=== PATIENT | male | born 1970 | race Caucasian/White ===

== ENCOUNTER 2016-12-16 10:50 | Inpatient (IN) ==
--- NOTE | 2016-12-16 11:26 | Emergency Department Note ---
Disposition Clinical Impression: Lower GI bleed, Anticoagulated Diverticulosis Qualifiers: Diverticulosis site: diverticulosis of large intestine Diverticulosis bleeding : diverticulosis with bleeding Qualified Code(s): K57.31 - Diverticulosis of large intestine without perforation or abscess with bleeding Disposition: Admitted As Inpatient Condition: Good Time of Disposition: 15:09 GI Bleed HPI - General Chief complaint: ED GI Bleed Stated complaint: rectal bleeding Source: patient Limitations: no limitations Nursing Notes Reviewed: Yes Vital Signs Reviewed: Yes - History of Present Illness HPI Narrative: 46-year-old male with past medical history of A. fib, diabetes, hypertension who is on the xarelto and aspirin daily presents to the emergency department complaining of dark red blood in his stool that began yesterday. He states that when he had a BM yesterday there was "a lot" of dark red blood. He was able to eat [employer] last night had no other symptoms. This morning he woke up and had 2 bowel movements that were looser than last night and dark red with dark black specks. He has never had a colonoscopy. He denies a history of any colon issues in the family. He has never had anything like this happen before. Denies headache, dizziness, changes in his vision, fevers, chills, chest pain , palpitations, cough, wheezing, shortness of breath, abdominal pain, dysuria - Related Data Home Medications Medication Instructions Recorded Confirmed Furosemide [Lasix] 80 mg PO BID 03/21/16 12/16/16 Metformin [Glucophage] 500 mg PO BIDWM 03/21/16 12/16/16 Rivaroxaban [Xarelto] 20 mg PO DAILY 03/21/16 12/16/16 Fluticasone Propionate Nasal 50 mcg NS DAILY #0 03/22/16 12/16/16 [Flonase] Glimepiride [Amaryl] 2 mg PO BID #0 03/22/16 12/16/16 Lisinopril/Hydrochlorothiazide 1 each PO DAILY #0 03/22/16 12/16/16 [Zestoretic 20-25 mg Tablet] Pioglitazone [Actos] 15 mg PO DAILY #0 03/22/16 12/16/16 Simvastatin [Zocor] 40 mg PO DAILY #0 03/22/16 12/16/16 Empagliflozin [Jardiance] 10 mg PO DAILY 12/16/16 12/16/16 Previous Rx's Medication Instructions Recorded Aspirin 81 mg PO DAILY #90 tab.chew 03/23/16 Nitroglycerin [Nitrostat] 0.4 mg SL AD PRN #30 tab 03/23/16 Carvedilol 12.5 mg PO BID 30 Days 06/07/16 Diltiazem HCl 90 mg PO TID 30 Days 06/07/16 Potassium Chloride 20 meq PO DAILY #30 tab.er.prt 06/07/16 Allergies Allergy/AdvReac Type Severity Reaction Status Date / Time No Known Allergies Allergy Verified 12/16/16 14:36 Constitutional: Denies: fever, chills, weakness, weight change Eyes: Denies: vision change ENT ED: Denies: ear pain, throat pain, epistaxis, dysphagia Cardiovascular: Denies: chest pain, palpitations, dyspnea on exertion, edema, syncope Respiratory: Denies: cough, dyspnea, wheezes, hemoptysis, stridor Gastrointestinal: Denies: abdominal pain, nausea, vomiting, diarrhea, constipation, hematemesis, melena Genitourinary: Denies: urgency, dysuria, frequency, hematuria Musculoskeletal: Denies: back pain Integumentary: Denies: rash Neurological: Denies: headache, weakness, numbness, paresthesias, confusion, abnormal gait, vertigo Endocrine: Denies: fatigue Past Medical History - Past Medical History Medical history: Reports: arthritis, atrial fibrillation, COPD, diabetes, GERD, hyperlipidemia, hypertension Surgical history: Reports: other Psychiatric history: Reports: no psych history - Social History Smoking Status: Never smoker Smokeless Tobacco Status: Yes Alcohol use: Reports: none Drug use: Reports: none Physical Exam - General Limitations: no limitations General appearance: alert, in no apparent distress - Head Head exam: atraumatic, normocephalic, normal inspection - Eye Eye exam: Present: normal appearance, PERRL, EOMI - Expanded Eye Exam Pupils: Left: reactive Sclera/Conjunctival: bilateral: normal inspection - ENT ENT exam: normal exam, normal oropharynx, mucous membranes moist - Neck Neck exam: Present: normal inspection, full ROM, trachea midline - Chest Chest inspection: Present: normal inspection, symmetric chest wall rise - Respiratory Respiratory exam: Present: normal lung sounds bilaterally - Cardiovascular Cardiovascular exam: Present: regular rate, normal rhythm, normal heart sounds - Abdominal Exam Abdominal exam: Present: soft, Non-Tender, normal bowel sounds. Absent: tenderness, distention, guarding, rebound, rigidity - Rectal Exam Shipping Lead Person present during exam: No Rectal exam: Present: normal rectal tone, bloody stool, normal prostate. Absent : hemorrhoids, tenderness - Extremities Exam Extremities exam: Present: normal inspection, full ROM. Absent: tenderness, pedal edema - Back Exam Back exam: Present: normal inspection, full ROM. Absent: tenderness - Neurological Exam Neurological exam: Present: alert, oriented X3 - Psychiatric Psychiatric exam: Present: normal affect, normal mood - Skin Skin exam: Present: warm, dry, intact, normal color Course Course Narrative: 46-year-old male with past medical history of A. fib, diabetes, hypertension who is on the xarelto and aspirin daily presents to the emergency department complaining of dark red blood in his stool that began yesterday. He states that when he had a BM yesterday there was "a lot" of dark red blood. He was able to eat [employer] last night had no other symptoms. This morning he woke up and had 2 bowel movements that were looser than last night and dark red with dark black specks. He has never had a colonoscopy. He denies a history of any colon issues in the family. He has never had anything like this happen before. Denies headache, dizziness, changes in his vision, fevers, chills, chest pain , palpitations, cough, wheezing, shortness of breath, abdominal pain, dysuria. Lab work was generally reveals a hemoglobin of 12.4, which is around his baseline. Rectal exam and blood was noted. Stool occult sent. Abdominal CT shows diverticulosis without evidence of diverticulitis. I discussed with the patient that since he is on both Xarelto and aspirin he is at high risk for continuing to bleed, as his body is less capable of stopping the bleeding right now. She is same we recommend admission to the hospital to monitor his hemoglobin and rate of bleeding. Vital signs are currently stable and patient appears well in exam no acute finding patient was hesitant to stay, however after discussion about the risks of bleeding and the patient is anticoagulated he is agreeable to admission. Admission discussed with Dr. Trevizo with Hospitalist service. - Consultations Consultation #1: Discussed the case with Dr. Trevizo who has accepted the patient to the hospitalist service. Time: 15:09 Vital Signs Temperature 97.4 F L 12/16/16 10:56 Pulse Rate 75 12/16/16 10:56 Respiratory Rate 20 12/16/16 10:56 Blood Pressure 113/80 12/16/16 10:56 O2 Sat by Pulse Oximetry 97 12/16/16 10:56 Temperature 97.4 F L 12/16/16 10:56 Pulse Rate 75 12/16/16 15:00 Respiratory Rate 16 12/16/16 15:50 Blood Pressure 120/78 12/16/16 15:50 O2 Sat by Pulse Oximetry 98 12/16/16 15:00 Oxygen Delivery Oxygen Delivery Room Air GI Bleed - Medical Records Medical records reviewed: Yes I reviewed the patient's medical records. - Lab Data Lab results reviewed: Yes I reviewed the patient's lab results. Result diagrams: 12/16/16 11:36 12/16/16 11:36 Lab Results 12/16/16 12/16/16 12/16/16 Range/Units 11:36 11:36 11:36 WBC 13.4 H (4.3-11.1) K/mcL RBC 4.82 (4.19-5.50) M/mcL Hgb 12.4 L (12.9-16.9) g/dL Hct 37.8 (37.5-50.1) % MCV 78.4 L (83.0-100.0) fL MCH 25.7 L (28.0-33.3) pg MCHC 32.8 (31.6-35.5) g/dL RDW 17.1 H (11.5-14.5) % Plt Count 292 (140-400) K/mcL MPV 8.5 L (9.4-12.4) fL Immature Gran % 0.6 (0-4) % Seg Neutrophils % 81.5 % Lymphocytes % 11.4 % Monocytes % 5.5 % Eosinophils % 0.7 % Basophils % 0.3 % Neutrophils # 10.9 H (1.6-8.9) K/mcL Lymphocytes # 1.5 (0.6-4.6) K/mcL Monocytes # 0.7 (0.0-1.3) K/mcL Eosinophils # 0.1 (0.0-0.6) K/mcL Basophils # 0.0 (0.0-0.2) K/mcL PT 20.9 H (9.4-12.1) Seconds INR 1.9 APTT 47.3 H (26.0-36.0) Seconds Sodium 127 L (136-145) mEq/L Potassium 4.3 (3.5-4.5) mEq/L Chloride 91 L (98-109) mEq/L Carbon Dioxide 21 (19-29) mEq/L BUN 56 H (8-26) mg/dL Creatinine 1.96 H (0.72-1.25) mg/dL Est GFR ( Amer) 44 L (> 60) Est GFR (Non-Af Amer) 37 L (> 60) BUN/Creatinine Ratio 29 H (6-26) Glucose 244 H (70-99) mg/dL Calculated Osmolality 288 (280-300) Calcium 9.8 (8.6-10.8) mg/dL Total Bilirubin 0.5 (0.2-1.2) mg/dL AST 16 (5-34) Units/L ALT 20 (0-55) Units/L Alkaline Phosphatase 78 (38-126) Units/L Serum Total Protein 8.1 (6.0-8.3) g/dL Albumin 3.9 (3.5-5.0) g/dL Globulin 4.2 H (2.4-3.5) g/dL Albumin/Globulin Ratio 0.9 L (1.1-2.2) Stool Occult Blood (Negative) Blood Type Antibody Screen 12/16/16 12/16/16 Range/Units 11:36 13:35 WBC (4.3-11.1) K/mcL RBC (4.19-5.50) M/mcL Hgb (12.9-16.9) g/dL Hct (37.5-50.1) % MCV (83.0-100.0) fL MCH (28.0-33.3) pg MCHC (31.6-35.5) g/dL RDW (11.5-14.5) % Plt Count (140-400) K/mcL MPV (9.4-12.4) fL Immature Gran % (0-4) % Seg Neutrophils % % Lymphocytes % % Monocytes % % Eosinophils % % Basophils % % Neutrophils # (1.6-8.9) K/mcL Lymphocytes # (0.6-4.6) K/mcL Monocytes # (0.0-1.3) K/mcL Eosinophils # (0.0-0.6) K/mcL Basophils # (0.0-0.2) K/mcL PT (9.4-12.1) Seconds INR APTT (26.0-36.0) Seconds Sodium (136-145) mEq/L Potassium (3.5-4.5) mEq/L Chloride (98-109) mEq/L Carbon Dioxide (19-29) mEq/L BUN (8-26) mg/dL Creatinine (0.72-1.25) mg/dL Est GFR ( Amer) (> 60) Est GFR (Non-Af Amer) (> 60) BUN/Creatinine Ratio (6-26) Glucose (70-99) mg/dL Calculated Osmolality (280-300) Calcium (8.6-10.8) mg/dL Total Bilirubin (0.2-1.2) mg/dL AST (5-34) Units/L ALT (0-55) Units/L Alkaline Phosphatase (38-126) Units/L Serum Total Protein (6.0-8.3) g/dL Albumin (3.5-5.0) g/dL Globulin (2.4-3.5) g/dL Albumin/Globulin Ratio (1.1-2.2) Stool Occult Blood Positive A (Negative) Blood Type A POSITIVE Antibody Screen NEGATIVE - Radiology Data Radiology results reviewed: Yes I reviewed the patient's radiology results. Abdomen/Pelvis CT 12/16/16 11:27 IMPRESSION: No acute abnormality in the abdomen or pelvis. Minimal rectosigmoid diverticulosis. No diverticulitis. Severe right hip osteoarthritis. D/ / 12/16/2016 13:39:00 Shira Bragg MD / jeannette Interpreting Provider: Shira Bragg MD - EKG Data EKG attestation: Yes I reviewed and interpreted this EKG. Rhythm: A.Fib Interpretation: unchanged when compared to prior tracing (date) Attestation Statement - Attestation Attestation: Patient was seen with resident physician. I reviewed the history, physical, assessment and plan, and agree with the findings. I also personally evaluated this patient and had [id number] time with this patient. Plan is a 46-year- old male who presents to the emergency department with rectal bleeding. Patient states he has had multiple dark black and purple stools over the last several days. Patient became concerned because he is on blood thinners for atrial fibrillation which she has had for some time. He has not had any abdominal pain. Denies other symptoms. He vehemently denies wanting to be admitted to the hospital. On examination ENT is unremarkable heart and lungs are normal. Abdomen is soft obese and nontender. Extremities are also unremarkable. Will do workup for GI bleed including a CT scan of the abdomen and pelvis and full laboratory panel. H&H was stable. Patient some mild worsening renal function. We will disposition according to the final findings and patient wishes. We were able to convince patient to stay in the hospital. With his rectal bleeding and being on blood thinners in addition to the fact that he has a CT finding compatible with a diagnosis that can cause GI bleed, admission was felt to be highly important. The hospitalist team was notified and patient was admitted I agree with the resident physician assessment and plan.
[2016-12-16 11:43] LABS: Basophils % 0.3 %; Eosinophils # 0.1 K/mcL (0.0-0.6); Eosinophils % 0.7 %; Hematocrit 37.8 % (37.5-50.1); Hemoglobin 12.4 g/dL (12.9-16.9); Immature Granulocytes % 0.6 % (0-4); Lymphocytes # 1.5 K/mcL (0.6-4.6); Lymphocytes % 11.4 %; Mean Corpuscular HGB Conc 32.8 g/dL (31.6-35.5); Mean Corpuscular Hemoglobin 25.7 pg (28.0-33.3); Mean Corpuscular Volume 78.4 fL (83.0-100.0); Mean Platelet Volume 8.5 fL (9.4-12.4); Monocytes # 0.7 K/mcL (0.0-1.3); Monocytes % 5.5 %; Neutrophils # 10.9 K/mcL (1.6-8.9); Platelet Count 292 K/mcL (140-400); Red Blood Count 4.82 M/mcL (4.19-5.50); Red Cell Distribution Width 17.1 % (11.5-14.5); Segmented Neutrophils % 81.5 %
[2016-12-16 11:54] LABS: INR 1.9; Prothrombin Time 20.9 Seconds (9.4-12.1)
[2016-12-16 11:56] LABS: Activated Partial Thrombo Time 47.3 Seconds (26.0-36.0); Albumin 3.9 g/dL (3.5-5.0); Albumin/Globulin Ratio 0.9 (1.1-2.2); Bilirubin,Total 0.5 mg/dL (0.2-1.2); Calcium 9.8 mg/dL (8.6-10.8); Globulin 4.2 g/dL (2.4-3.5); Potassium 4.3 mEq/L (3.5-4.5); Total Protein 8.1 g/dL (6.0-8.3)
[2016-12-16] MEDS ORDERED: 0.9 % Sodium Chloride 1,000 ML IVC ONE (12:29)
[2016-12-16] MEDS ORDERED: Naloxone 0.4 MG/ML INJ IVP PRN (16:48)
[2016-12-16] MEDS ORDERED: Ondansetron 4 MG/2 ML VIAL IVP PRN (16:50)
--- NOTE | 2016-12-16 17:51 | Internal Med History&Physical ---
<Myron,Tamika Arshad - Last Filed: 12/16/16 18:49> Date of Encounter: 12/16/16 Time of Encounter: 17:15 Assessment and Plan (1) Diverticulosis Current visit: Yes Status: Acute Pt reports 1 day history of dark GI bleeding with loose stool. Pt denies pain, bloating, or cramping. No history of same in the past. Hgb 12.4 today and guiac was positive in the ER. Spoke with Dr Franco who will see pt tomorrow. Clear liquid diet Monitor H&H Stop anticoagulants Consult surgery Qualifiers: Diverticulosis site: diverticulosis of large intestine Diverticulosis bleeding: diverticulosis with bleeding Qualified Code(s): K57.31 - Diverticulosis of large intestine without perforation or abscess with bleeding (2) Diabetes Current visit: No Status: Chronic Pt states that he is compliant with his diabetic medications, but does not appear to follow diet when asked if he is counting his carbohydrates. Serum glucose 244mg/dL in the ER. Sodium 127, will continue to monitor both levels for hemostasis. Last A1c was 7.0% in May 2016. Will repeat. I consulted podiatry as well due to the condition of his feet. Pt walks barefooted most of the time he says and his toenails are long and some are thickened, pt is not able to reach them to trim. Nutrition and sliding scale insulin Stop po home antidiabetic medications Diabetic diet once he is cleared to advance diet A1c Accucheck achs Consult podiatry Consult simulation educator Qualifiers: Diabetes mellitus type: type 2 Diabetes mellitus complication status: with kidney complications Diabetes mellitus complication detail: with chronic kidney disease Diabetes mellitus assisted insulin use: without intermission coordinator use Chronic kidney disease stage: stage 3 (moderate) Qualified Code(s): E11.22 - Type 2 diabetes mellitus with diabetic chronic kidney disease; N18.3 - Chronic kidney disease, stage 3 (moderate) (3) Renal failure Current visit: No Status: Chronic Pt with CKD. Creatinine today 1.96. Chronically elevated for the last 8 months. Will continue to monitor and avoid nephrotoxins, NSAIDs. Internal Medicine - H&P: HPI Chief complaint: GI bleed Admitted From: Home Plans for Post Hospital Care: Home History of present illness: Mr. Mcdonnell is a 46 year old male with history of DM, hyperlipidemia, a-fib, and CAD who presents to the ED today with c/o 1 day history of GI bleed. Pt had BM yesterday a.m. and this a.m. which had dark blood that "filled the toilet". Pt states that his stool was green. Denies any pain, bloating, or new distension. Past Med Surg Social Fam HX - Past Medical History Medical history: arthritis, atrial fibrillation, COPD, diabetes, GERD, hyperlipidemia, hypertension Psychiatric history: no psych history - Past Surgical History Surgical History: other - Social History Smoking Status: Never smoker Smokeless Tobacco Status: Yes Alcohol use: none Drug use: none - Family History Father Living Status: Hx Family Cardiac Disorders: Yes Hx Family Cancer: Yes Internal Medicine - H&P: Meds Furosemide [Lasix] 80 mg PO BID 03/21/16 [History] Metformin [Glucophage] 500 mg PO BIDWM 03/21/16 [History] Rivaroxaban [Xarelto] 20 mg PO DAILY 03/21/16 [History] Fluticasone Propionate Nasal [Flonase] 50 mcg NS DAILY #0 03/22/16 [History] Glimepiride [Amaryl] 2 mg PO BID #0 03/22/16 [History] Lisinopril/Hydrochlorothiazide [Zestoretic 20-25 mg Tablet] 1 each PO DAILY #0 03/22/16 [History] Pioglitazone [Actos] 15 mg PO DAILY #0 03/22/16 [History] Simvastatin [Zocor] 40 mg PO DAILY #0 03/22/16 [History] Aspirin 81 mg PO DAILY #90 tab.chew 03/23/16 [Rx] Nitroglycerin [Nitrostat] 0.4 mg SL AD PRN #30 tab 03/23/16 [Rx] Carvedilol 12.5 mg PO BID 30 Days 06/07/16 [Rx] Diltiazem HCl 90 mg PO TID 30 Days 06/07/16 [Rx] Potassium Chloride 20 meq PO DAILY #30 tab.er.prt 06/07/16 [Rx] Empagliflozin [Jardiance] 10 mg PO DAILY 12/16/16 [History] Allergies No Known Allergies Allergy (Verified 12/16/16 14:36) All Systems PM: A 10-system review of systems was performed and is negative for pertinent findings except as documented above in the HPI. - Constitutional Constitutional: no chills, no fatigue, no fever(s), no weakness - Cardiovascular Cardiovascular ROS IM: edema, no chest pain, no dyspnea, no lightheadedness, no palpitations - Respiratory Respiratory: no cough, no wheezing, no chest congestion - Gastrointestinal Gastrointestinal: no diarrhea, no nausea, no vomiting - Integumentary Integumentary IM: no erythema, no unusual bruising - Endocrine Endocrine IM: polydipsia, no polyphagia, no polyuria - Hematologic/Lymphatic Hematologic/Lymphatic: no easy bleeding, no easy bruising - Constitutional Vitals: Temp Pulse Resp BP Pulse Ox 97.7 F 100 16 100/64 95 12/16/16 16:32 12/16/16 16:32 12/16/16 16:32 12/16/16 16:32 12/16/16 16:32 General appearance: Present: cooperative, A&O X 3, pleasant, no acute distress - Head Head exam: Present: atraumatic - ENT ENT exam: Present: mucous membranes moist - Respiratory Respiratory exam: Present: CTAB. Absent: accessory muscle use, chest wall tenderness, decreased breath sounds, respiratory distress, rhonchi, wheezes - Cardiovascular Cardiovascular exam: Present: RRR, +S1, +S2. Absent: distant heart sounds, systolic murmur - GI/Abdominal GI/Abdominal exam: Present: distended, hyperactive bowel sounds, soft. Absent: hernia, pulsatile mass, tenderness - Rectal Rectal exam: Present: deferred - Extremities Exam Extremities exam: Present: full ROM, pedal edema, warm, radial pulses palpable and symetrical. Absent: tenderness Additional comments: PT has +2 non-pitting edema to BLE, pt states is normal for him. BLE +2 pedal pulses. - Neurological Exam Neurological exam: Present: alert, oriented X3, strengths equal and symetr throughout Internal Med - H&P Results - Labs CBC & Chem 7: 12/16/16 11:36 12/16/16 11:36 <Al Trevizo - Last Filed: 12/17/16 09:09> Date of Encounter: 12/17/16 Internal Medicine - H&P: HPI History of present illness: Mr. Mcdonnell is a 46 year old male All Systems PM: A 10-system review of systems was performed and is negative for pertinent findings except as documented above in the HPI. - Constitutional Vitals: Temp Pulse Resp BP Pulse Ox 98.0 F 76 18 109/72 94 L 12/17/16 06:55 12/17/16 06:55 12/17/16 06:55 12/17/16 06:55 12/17/16 08:51 Internal Med - H&P Results - Labs CBC & Chem 7: 12/17/16 01:08 12/17/16 01:08 Labs: Short CBC 12/16/16 12/17/16 Range/Units 20:22 01:08 WBC 9.4 (4.3-11.1) K/mcL Hgb 11.2 L 10.7 L (12.9-16.9) g/dL Hct 34.7 L 33.0 L (37.5-50.1) % Plt Count 267 (140-400) K/mcL Neutrophils # 6.6 (1.6-8.9) K/mcL BMP 12/17/16 01:08 Sodium 130 L Potassium 4.5 Chloride 96 L Carbon Dioxide 21 BUN 46 H D Creatinine 1.58 H Glucose 139 H Calcium 8.8 - Attending Attestation I examined this patient and my medical decision-making was reviewed with the Advanced Practice Provider. I agree with the documented findings, disposition and treatment plan as described except to the extent set forth below. Patient presented to the hospital with rectal bleed. On exam he is in no acute distress, heart irregularly irregular S1-S2. Abdomen obese, soft, nontender to palpation. For lower GI bleed likely diverticular bleed we will start bowel rest. Sips and chips diet. IV Protonix. Hold anticoagulation. Consult general surgery.
[2016-12-16] MEDS: 0.9 % Sodium Chloride 1,000 ML IVC SCH (17:57)
[2016-12-16] MEDS ORDERED: Dextrose Gel 15 GM PO PRN ×2 (18:24)
[2016-12-16] MEDS ORDERED: D5% in Water 1,000 ML IV PRN (18:24)
[2016-12-16] MEDS ORDERED: *HR* Dextrose 50 % in Water (Syg) 50 ML SYRINGE IVP PRN (18:24)
[2016-12-16 20:36] LABS: Hematocrit 34.7 % (37.5-50.1); Hemoglobin 11.2 g/dL (12.9-16.9)
[2016-12-16] MEDS: dilTIAZem HCl 60 MG TABLET PO SCH (21:32)
[2016-12-16] MEDS: Furosemide 40 MG TABLET PO SCH (21:34)
[2016-12-16] MEDS: Insulin LISPRO 300 UNITS/3 ML VIAL SQ SCH (21:35)
[2016-12-17 01:36] LABS: Basophils % 0.4 %; Eosinophils # 0.1 K/mcL (0.0-0.6); Eosinophils % 1.2 %; Hemoglobin 10.7 g/dL (12.9-16.9); Immature Granulocytes % 0.7 % (0-4); Immature Platelets 1.6 % (1.1-6.1); Lymphocytes # 1.8 K/mcL (0.6-4.6); Lymphocytes % 19.2 %; Mean Corpuscular HGB Conc 32.4 g/dL (31.6-35.5); Mean Corpuscular Hemoglobin 25.5 pg (28.0-33.3); Mean Corpuscular Volume 78.6 fL (83.0-100.0); Mean Platelet Volume 8.6 fL (9.4-12.4); Monocytes # 0.8 K/mcL (0.0-1.3); Monocytes % 8.1 %; Neutrophils # 6.6 K/mcL (1.6-8.9); Platelet Count 267 K/mcL (140-400); Segmented Neutrophils % 70.4 %
[2016-12-17 01:51] LABS: Calcium 8.8 mg/dL (8.6-10.8); Hemoglobin A1C 8.8 %; Potassium 4.5 mEq/L (3.5-4.5)
[2016-12-17] MEDS ORDERED: Insulin LISPRO 300 UNITS/3 ML VIAL SQ SCH ×2 (07:30→08:00)
[2016-12-17] MEDS: 0.9 % Sodium Chloride 1,000 ML IVC SCH (08:37)
[2016-12-17] MEDS: Furosemide 40 MG TABLET PO SCH ×2 (08:37→20:41)
[2016-12-17] MEDS: dilTIAZem HCl 60 MG TABLET PO SCH ×3 (08:38→20:40)
[2016-12-17] MEDS: Insulin DETEMIR 100 UNIT/ML X5UNITS SQ SCH (08:47)
[2016-12-17] MEDS: Fluticasone Propionate Nasal 50 MCG/SPRAY BOTTLE NS SCH (08:47)
--- NOTE | 2016-12-17 09:37 | Internal Med Progress Note ---
Date of Encounter: 12/17/16 Time of Encounter: 09:15 - Assessment and plan (1) Lower GI bleed Current Visit: Yes Status: Acute Assessment and plan: patient on chronic anticoagulation with Xarelto for afib. presented with dark bloody stools. CTAP showed diverticulosis. hgb 10.7 from 12.4 on admission. patient is hemodynamically stable. could be secondary to diverticular bleed. no prior episodes of GI bleed. continue medical management with IV fluids, close monitoring of hgb. (2) Acute hyponatremia Current Visit: Yes Status: Acute Assessment and plan: likely from dehydration and furosemide use. Na was 127 on admission. improved after IV fluids. (3) Acute renal failure superimposed on stage 3 chronic kidney disease Current Visit: No Status: Chronic Assessment and plan: Acute event secondary to Gi bleed. Improved after IV fluids. close monitoring. avoid nephrotoxins as possible. (4) Atrial fibrillation Current Visit: No Status: Acute Assessment and plan: heart rate is controlled. continue coreg and diltiazem. Qualifiers: Atrial fibrillation type: chronic Qualified Code(s): I48.2 - Chronic atrial fibrillation (5) CAD (coronary artery disease) Current Visit: No Status: Chronic Assessment and plan: stable. continue bblocker, and statin. holding asa due to GI bleed. Qualifiers: Coronary Disease-Associated Artery/Lesion type: [place] artery [place] vs. transplanted heart: [place] heart Associated angina: without angina Qualified Code(s): I25.10 - Atherosclerotic heart disease of [place] coronary artery without angina pectoris (6) Chronic anticoagulation Current Visit: No Status: Chronic Assessment and plan: on xarelto for afib (7) Diabetes Current Visit: No Status: Chronic Assessment and plan: insulin levemir 10 am. continue insulin sliding scale and diabetic diet. Qualifiers: Diabetes mellitus type: type 2 Diabetes mellitus complication status: with kidney complications Diabetes mellitus complication detail: with chronic kidney disease Diabetes mellitus terminal carman insulin use: without longterm use Chronic kidney disease stage: stage 3 (moderate) Qualified Code(s): E11.22 - Type 2 diabetes mellitus with diabetic chronic kidney disease; N18.3 - Chronic kidney disease, stage 3 (moderate) (8) Hypertension Current Visit: No Status: Chronic Assessment and plan: Controlled. continue coreg, diltiazem and furosemide. Hold lisinopril and HCTZ due to hyponatremia. Qualifiers: Hypertension type: essential hypertension Qualified Code(s): I10 - Essential (primary) hypertension (9) Morbid obesity with BMI of 45.0-49.9, adult Current Visit: No Status: Chronic Assessment and plan: outpatient weight loss program. - Subjective Interval history: Patient just had a BM and it was bloody (stools mixed with bloods). no abdominal pain. he is eager to have a normal diet. - Constitutional Vitals: Temp Pulse Resp BP Pulse Ox 98.0 F 76 18 109/72 94 L 12/17/16 06:55 12/17/16 06:55 12/17/16 06:55 12/17/16 06:55 12/17/16 08:51 General appearance: Present: cooperative, A&O X 3, morbidly obese, pleasant, no acute distress, answers questions appropriately Exam: stools in toilet are bloody. - Eye Eye exam: Present: PERRL, sclera anicteric - Neck Neck exam general surgery: Present: supple, trachea midline. Absent: lymphadenopathy - Respiratory Respiratory exam: Present: CTAB - Cardiovascular Cardiovascular exam: Present: RRR - GI/Abdominal GI/Abdominal exam: Present: normal bowel sounds, soft. Absent: distended, tenderness - Extremities Exam Extremities exam: Absent: pedal edema - Back Exam Back exam: Absent: CVA tenderness (L), CVA tenderness (R) - Neurological Exam Neurological exam: Present: alert, oriented X3. Absent: facial droop, speech deficit Internal Medicine: Result - Labs CBC & Chem 7: 12/17/16 01:08 12/17/16 01:08 Labs: Short CBC 12/16/16 12/17/16 Range/Units 20:22 01:08 WBC 9.4 (4.3-11.1) K/mcL Hgb 11.2 L 10.7 L (12.9-16.9) g/dL Hct 34.7 L 33.0 L (37.5-50.1) % Plt Count 267 (140-400) K/mcL Neutrophils # 6.6 (1.6-8.9) K/mcL BMP 12/17/16 01:08 Sodium 130 L Potassium 4.5 Chloride 96 L Carbon Dioxide 21 BUN 46 H D Creatinine 1.58 H Glucose 139 H Calcium 8.8 - ABG Interpretation ABG results: PT/INR, D-dimer PT 20.9 Seconds (9.4-12.1) H 12/16/16 11:36 Consult Discharge Plan - Plan Referrals: Agatha Stone MD [Primary Care Provider] -
[2016-12-17] MEDS: Insulin LISPRO 300 UNITS/3 ML VIAL SQ SCH ×4 (11:19→23:33)
--- NOTE | 2016-12-17 14:40 | General Surgery Consult Note ---
<Monroe Savage - Last Filed: 12/17/16 14:36> Date of Encounter: 12/17/16 Time of Encounter: 12:30 Assessment and Plan (1) Lower GI bleed Current Visit: Yes Status: Acute CT noted diverticulosis, possible source of GI bleeding. Patient had regular lunch today, will start clear liquids and bowel prep tomorrow. Plan for colonscopy on 12/19/16. Xarelto, for patient's Atrial fib is currently being held for likely GI bleeding. Continue to monitor H/H. (2) Diverticulosis Current Visit: Yes Status: Chronic CT noted minimal rectosigmoid diverticulosis. Plan for possible colonscopy . 12/19/16 Qualifiers: Diverticulosis site: diverticulosis of large intestine Diverticulosis bleeding: diverticulosis with bleeding Qualified Code(s): K57.31 - Diverticulosis of large intestine without perforation or abscess with bleeding (3) Atrial fibrillation Current Visit: No Status: Chronic Xarelto held for GI bleed. Possible colonscopy on . Qualifiers: Atrial fibrillation type: chronic Qualified Code(s): I48.2 - Chronic atrial fibrillation (4) Diabetes Current Visit: No Status: Chronic A1C 8.8 Management per medicine service Qualifiers: Diabetes mellitus type: type 2 Diabetes mellitus complication status: with kidney complications Diabetes mellitus complication detail: with chronic kidney disease Diabetes mellitus nitric acid plant operator insulin use: without nitric acid plant operator use Chronic kidney disease stage: stage 3 (moderate) Qualified Code(s): E11.22 - Type 2 diabetes mellitus with diabetic chronic kidney disease; N18.3 - Chronic kidney disease, stage 3 (moderate) (5) Hypertension Current Visit: No Status: Chronic Normotensive management per medicine service Qualifiers: Hypertension type: essential hypertension Qualified Code(s): I10 - Essential (primary) hypertension (6) Hyperlipidemia Current Visit: No Status: Chronic Qualifiers: Hyperlipidemia type: unspecified Qualified Code(s): E78.5 - Hyperlipidemia , unspecified (7) Morbid obesity with BMI of 45.0-49.9, adult Current Visit: No Status: Chronic History of Present Illness Consult date: 12/17/16 Reason for consult: endoscopy (red blood per rectum) Requesting physician: Tamika Sanches History of present illness: Mr. Mcdonnell is a 46 year old male that presented to the ED for dark red blood per rectum once on Sunday (12/15/16) and 2 episodes on Sunday (12/16/16). Patient does note dark red clots present, denies any pain. Patient is on Xarelto at home for history of Atrial fib, currently held while inpatient. Patient does note some nausea, but denies any changes in appetite, vomiting, acid reflux, or unintentional weight loss. Denies history of NSAID use or history of GERD. Patient was found to have a Hgb of 12.4 initially, now 10.7. Past Med Surg Social Fam HX - Past Medical History Source: patient Medical history: arthritis, atrial fibrillation, COPD, diabetes, GERD, hyperlipidemia, hypertension Psychiatric history: no psych history - Past Surgical History Surgical History: other (ablation for a fib) - Social History Smoking Status: Never smoker Smokeless Tobacco Status: Yes (4-5 years) Alcohol use: none Drug use: none - Family History Father Living Status: Hx Family Cardiac Disorders: Yes Hx Family Cancer: Yes Mother Hx Family Cancer: Yes (melanoma) Medications and Allergies Furosemide [Lasix] 80 mg PO BID 03/21/16 [History] Metformin [Glucophage] 500 mg PO BIDWM 03/21/16 [History] Rivaroxaban [Xarelto] 20 mg PO DAILY 03/21/16 [History] Fluticasone Propionate Nasal [Flonase] 50 mcg NS DAILY #0 03/22/16 [History] Glimepiride [Amaryl] 2 mg PO BID #0 03/22/16 [History] Lisinopril/Hydrochlorothiazide [Zestoretic 20-25 mg Tablet] 1 each PO DAILY #0 03/22/16 [History] Pioglitazone [Actos] 15 mg PO DAILY #0 03/22/16 [History] Simvastatin [Zocor] 40 mg PO DAILY #0 03/22/16 [History] Aspirin 81 mg PO DAILY #90 tab.chew 03/23/16 [Rx] Nitroglycerin [Nitrostat] 0.4 mg SL AD PRN #30 tab 03/23/16 [Rx] Carvedilol 12.5 mg PO BID 30 Days 06/07/16 [Rx] Diltiazem HCl 90 mg PO TID 30 Days 06/07/16 [Rx] Potassium Chloride 20 meq PO DAILY #30 tab.er.prt 06/07/16 [Rx] Empagliflozin [Jardiance] 10 mg PO DAILY 12/16/16 [History] Allergies No Known Allergies Allergy (Verified 12/16/16 14:36) Review of Systems All systems PM: A 10-system review of systems was performed and is negative for pertinent findings except as documented above in the HPI. - Constitutional no chills, no fever(s), no weight loss - EENT Nose, mouth and throat: no dysphagia - Cardiovascular no chest pain, no dyspnea, no syncope - Respiratory no dyspnea - Gastrointestinal hematochezia, nausea, no abdominal pain, no diarrhea, no melena, no vomiting - Genitourinary no dysuria - Musculoskeletal no muscle weakness - Neurological no dizziness, no syncope - Hematologic/Lymphatic no easy bleeding General Surgery Exam Initial Vital Signs Temp Pulse Resp BP Pulse Ox 97.4 F L 75 20 113/80 97 12/16/16 10:56 12/16/16 10:56 12/16/16 10:56 12/16/16 10:56 12/16/16 10:56 - General physical appearance well developed, well nourished, no distress - Eyes normal ocular movement - ENT normal mucosa, atraumatic, normocephalic - Neck trachea midline - Respiratory normal expansion, normal respiratory effort - Abdomen Abdomen general surgery: Present: soft, non tender - Integumentary Integumentary general surgery: Present: warm and dry, no abnormal pigmentation - Neurologic Present: CN 2-12 grossly intact - Musculoskeletal Present: normal posture - Psychiatric Psychiatric general surgery: Present: A&Ox3, speech is normal, memory intact Exam Initial Vital Signs Temp Pulse Resp BP Pulse Ox 97.4 F L 75 20 113/80 97 12/16/16 10:56 12/16/16 10:56 12/16/16 10:56 12/16/16 10:56 12/16/16 10:56 Results - Labs 12/17/16 01:08 12/17/16 01:08 Abnormal lab results Hgb 10.7 g/dL (12.9-16.9) L 12/17/16 01:08 Hct 33.0 % (37.5-50.1) L 12/17/16 01:08 MCV 78.6 fL (83.0-100.0) L 12/17/16 01:08 MCH 25.5 pg (28.0-33.3) L 12/17/16 01:08 RDW 17.0 % (11.5-14.5) H 12/17/16 01:08 MPV 8.6 fL (9.4-12.4) L 12/17/16 01:08 PT 20.9 Seconds (9.4-12.1) H 12/16/16 11:36 APTT 47.3 Seconds (26.0-36.0) H 12/16/16 11:36 Sodium 130 mEq/L (136-145) L 12/17/16 01:08 Chloride 96 mEq/L (98-109) L 12/17/16 01:08 BUN 46 mg/dL (8-26) H D 12/17/16 01:08 Creatinine 1.58 mg/dL (0.72-1.25) H 12/17/16 01:08 Est GFR ( Amer) 57 (> 60) L 12/17/16 01:08 Est GFR (Non-Af Amer) 47 (> 60) L 12/17/16 01:08 BUN/Creatinine Ratio 29 (6-26) H 12/17/16 01:08 Glucose 139 mg/dL (70-99) H 12/17/16 01:08 POC Glucose 254 (58-89) H 12/17/16 10:56 Hemoglobin A1c 8.8 % (-5.6) H 12/17/16 01:08 Globulin 4.2 g/dL (2.4-3.5) H 12/16/16 11:36 Albumin/Globulin Ratio 0.9 (1.1-2.2) L 12/16/16 11:36 Stool Occult Blood Positive (Negative) A 12/16/16 13:35 Diabetes panel 12/17/16 12/17/16 Range/Units 01:08 01:08 Sodium 130 L (136-145) mEq/L Potassium 4.5 (3.5-4.5) mEq/L Chloride 96 L (98-109) mEq/L Carbon Dioxide 21 (19-29) mEq/L BUN 46 H D (8-26) mg/dL Creatinine 1.58 H (0.72-1.25) mg/dL Glucose 139 H (70-99) mg/dL Hemoglobin A1c 8.8 H ( - 5.6) % Calcium 8.8 (8.6-10.8) mg/dL Calcium panel 12/17/16 Range/Units 01:08 Calcium 8.8 (8.6-10.8) mg/dL Pituitary panel 12/17/16 Range/Units 01:08 Sodium 130 L (136-145) mEq/L Potassium 4.5 (3.5-4.5) mEq/L Chloride 96 L (98-109) mEq/L Carbon Dioxide 21 (19-29) mEq/L BUN 46 H D (8-26) mg/dL Creatinine 1.58 H (0.72-1.25) mg/dL Glucose 139 H (70-99) mg/dL Calcium 8.8 (8.6-10.8) mg/dL Adrenal panel 12/17/16 Range/Units 01:08 Sodium 130 L (136-145) mEq/L Potassium 4.5 (3.5-4.5) mEq/L Chloride 96 L (98-109) mEq/L Carbon Dioxide 21 (19-29) mEq/L BUN 46 H D (8-26) mg/dL Creatinine 1.58 H (0.72-1.25) mg/dL Glucose 139 H (70-99) mg/dL Calcium 8.8 (8.6-10.8) mg/dL All other labs normal. Consult Discharge Plan - Plan Referrals: Agatha Stone MD [Primary Care Provider] - <Saida Franco - Last Filed: 12/17/16 18:07> Date of Encounter: 12/17/16 Assessment and Plan (1) Anticoagulated Current Visit: Yes Status: Acute (2) Lower GI bleed Current Visit: Yes Status: Acute Patient's hemoglobins have been stable in its completely reasonable to allow him to DC home and my office can schedule him for an outpatient colonoscopy. Or he can stay within the hospital and tomorrow start clear liquids and a bowel prep and be scoped on Sunday. Either way risks and benefits of colonoscopy were discussed with the patient and he wishes to proceed History of Present Illness History of present illness: Patient is a 46-year-old male who has never previously had a colonoscopy. 2 days ago in the morning he noticed dark red blood when he was trying to have a bowel movement. He states even pass clots. This occurred again the following day which was Sunday 2. He denied any abdominal pain at the time. He has had no recent weight loss. He has no complaints of heartburn or reflux. Denies any diarrhea or constipation. Patient does take xaralto for atrial fibrillation Review of Systems All systems PM: reviewed and no additional remarkable complaints except as stated All systems PM: A 10-system review of systems was performed and is negative for pertinent findings except as documented above in the HPI. General Surgery Exam Initial Vital Signs Temp Pulse Resp BP Pulse Ox 97.4 F L 75 20 113/80 97 12/16/16 10:56 12/16/16 10:56 12/16/16 10:56 12/16/16 10:56 12/16/16 10:56 - General physical appearance well developed, well nourished, no distress - Eyes pinpoint pupil, PERRL, normal ocular movement - ENT normal mucosa, atraumatic, normocephalic - Neck trachea midline - Respiratory normal expansion, normal respiratory effort - Cardiovascular Cardiovascular exam: Present: RRR, no murmurs/rubs/gallops - Abdomen Abdomen general surgery: Present: bowel sounds present, soft, non tender - Integumentary Integumentary general surgery: Present: warm and dry, no abnormal pigmentation - Neurologic Present: CN 2-12 grossly intact - Musculoskeletal Present: normal gait, normal posture - Psychiatric Psychiatric general surgery: Present: A&Ox3, speech is normal Exam Initial Vital Signs Temp Pulse Resp BP Pulse Ox 97.4 F L 75 20 113/80 97 12/16/16 10:56 12/16/16 10:56 12/16/16 10:56 12/16/16 10:56 12/16/16 10:56 Results - Labs 12/17/16 17:47 12/17/16 01:08 Abnormal lab results Hgb 11.6 g/dL (12.9-16.9) L 12/17/16 17:47 Hct 36.3 % (37.5-50.1) L 12/17/16 17:47 MCV 78.6 fL (83.0-100.0) L 12/17/16 01:08 MCH 25.5 pg (28.0-33.3) L 12/17/16 01:08 RDW 17.0 % (11.5-14.5) H 12/17/16 01:08 MPV 8.6 fL (9.4-12.4) L 12/17/16 01:08 PT 20.9 Seconds (9.4-12.1) H 12/16/16 11:36 APTT 47.3 Seconds (26.0-36.0) H 12/16/16 11:36 Sodium 130 mEq/L (136-145) L 12/17/16 01:08 Chloride 96 mEq/L (98-109) L 12/17/16 01:08 BUN 46 mg/dL (8-26) H D 12/17/16 01:08 Creatinine 1.58 mg/dL (0.72-1.25) H 12/17/16 01:08 Est GFR ( Amer) 57 (> 60) L 12/17/16 01:08 Est GFR (Non-Af Amer) 47 (> 60) L 12/17/16 01:08 BUN/Creatinine Ratio 29 (6-26) H 12/17/16 01:08 Glucose 139 mg/dL (70-99) H 12/17/16 01:08 POC Glucose 112 (58-89) H 12/17/16 16:16 Hemoglobin A1c 8.8 % (-5.6) H 12/17/16 01:08 Globulin 4.2 g/dL (2.4-3.5) H 12/16/16 11:36 Albumin/Globulin Ratio 0.9 (1.1-2.2) L 12/16/16 11:36 Stool Occult Blood Positive (Negative) A 12/16/16 13:35 All other labs normal. - Attending Attestation I examined this patient and my medical decision-making was reviewed with the THERMITE BOMB LOADER/PA/Advanced Practice Nurse/Resident Physician. I agree with the documented findings, disposition and treatment plan as described except to the extent set forth below.
[2016-12-17 17:55] LABS: Hematocrit 36.3 % (37.5-50.1); Hemoglobin 11.6 g/dL (12.9-16.9)
--- NOTE | 2016-12-18 00:18 | Electrocardiograph Report ---
[facility] Test Date: 2016-12-16 Pat Name: Eloy Mcdonnell Department: 103 Room: 2A36 Gender: M Product Ambassador: SANJEEV : 1970 Requested By: Ernestine Steele Order Number: [id number] Reading MD: Robert Martinez MD Measurements Intervals [place] Rate: 77 P: [place]: 0 QRS: -25 QRSD: 98 T: 38 QT: 408 QTc: 439 Interpretive Statements ATRIAL FIBRILLATION POOR R-WAVE PROGRESSION Electronically Signed On 12-18-16 00:17:44 EST by Robert Martinez MD
[2016-12-18] MEDS: Insulin LISPRO 300 UNITS/3 ML VIAL SQ SCH ×3 (05:41→18:09)
[2016-12-18 05:58] LABS: Basophils % 0.5 %; Eosinophils # 0.2 K/mcL (0.0-0.6); Eosinophils % 2.2 %; Hematocrit 32.8 % (37.5-50.1); Hemoglobin 10.7 g/dL (12.9-16.9); Immature Granulocytes % 0.4 % (0-4); Lymphocytes # 1.3 K/mcL (0.6-4.6); Lymphocytes % 15.2 %; Mean Corpuscular HGB Conc 32.6 g/dL (31.6-35.5); Mean Corpuscular Hemoglobin 25.8 pg (28.0-33.3); Mean Platelet Volume 8.5 fL (9.4-12.4); Monocytes # 0.8 K/mcL (0.0-1.3); Monocytes % 9.2 %; Platelet Count 202 K/mcL (140-400); Red Blood Count 4.15 M/mcL (4.19-5.50); Red Cell Distribution Width 17.2 % (11.5-14.5); Segmented Neutrophils % 72.5 %
[2016-12-18 06:13] LABS: BUN/Creatinine Ratio 25 (6-26); Calcium 9.1 mg/dL (8.6-10.8); Carbon Dioxide 24 mEq/L (19-29); Chloride 98 mEq/L (98-109); Glucose 143 mg/dL (70-99); Magnesium 2.1 mg/dL (1.6-2.6); Osmolality,Calculated 287 (280-300); Potassium 4.1 mEq/L (3.5-4.5); Sodium 134 mEq/L (136-145); eGFR For African Americans > 60 (> 60); eGFR For Non-African Americans > 60 (> 60)
[2016-12-18 06:15] LABS: Blood Urea Nitrogen 31 mg/dL (8-26)
[2016-12-18] MEDS: dilTIAZem HCl 60 MG TABLET PO SCH ×3 (07:46→22:24)
[2016-12-18] MEDS: Furosemide 40 MG TABLET PO SCH ×2 (07:47→22:24)
[2016-12-18] MEDS: Fluticasone Propionate Nasal 50 MCG/SPRAY BOTTLE NS SCH (07:49)
[2016-12-18] MEDS: Insulin DETEMIR 100 UNIT/ML X5UNITS SQ SCH (07:56)
[2016-12-18] MEDS ORDERED: Polyethylene Glycol 3350 255 GM POWDER PO ONE (10:49)
--- NOTE | 2016-12-18 10:55 | General Surgery Progress Note ---
<Monroe Savage - Last Filed: 12/18/16 10:57> Date of Encounter: 12/18/16 Time of Encounter: 08:45 - Assessment and Plan (1) Lower GI bleed Current Visit: Yes Status: Acute Plan for colonscopy tomorrow. Clear liquids today, NPO at midnight Bowel prep today. Xarelto, for patient's Atrial fib is currently being held for likely GI bleeding. Continue to monitor H/H. (2) Diverticulosis Current Visit: Yes Status: Chronic Qualifiers: Diverticulosis site: diverticulosis of large intestine Diverticulosis bleeding: diverticulosis with bleeding Qualified Code(s): K57.31 - Diverticulosis of large intestine without perforation or abscess with bleeding (3) Atrial fibrillation Current Visit: No Status: Chronic Management per medicine service. Qualifiers: Atrial fibrillation type: chronic Qualified Code(s): I48.2 - Chronic atrial fibrillation (4) Diabetes Current Visit: No Status: Chronic Management per medicine service. Qualifiers: Diabetes mellitus type: type 2 Diabetes mellitus complication status: with kidney complications Diabetes mellitus complication detail: with chronic kidney disease Diabetes mellitus prison insulin use: without rat exterminator use Chronic kidney disease stage: stage 3 (moderate) Qualified Code(s): E11.22 - Type 2 diabetes mellitus with diabetic chronic kidney disease; N18.3 - Chronic kidney disease, stage 3 (moderate) (5) Hypertension Current Visit: No Status: Chronic Management per medicine service. Qualifiers: Hypertension type: essential hypertension Qualified Code(s): I10 - Essential (primary) hypertension (6) Hyperlipidemia Current Visit: No Status: Chronic Qualifiers: Hyperlipidemia type: unspecified Qualified Code(s): E78.5 - Hyperlipidemia , unspecified (7) Morbid obesity with BMI of 45.0-49.9, adult Current Visit: No Status: Chronic Subjective Patient reports: no new complaints, feels better, flatus, bowel movement (none today, but last BM yesterday did not have red blood on appearance.), afebrile Objective Vital Signs - Last 8 Hours Temp Pulse Resp BP Pulse Ox 12/18/16 07:19 98.5 F 80 20 116/69 95 12/18/16 04:02 98.5 F 77 16 92/50 94 L Intake and Output 12/17/16 12/18/16 12/18/16 23:59 07:59 15:59 Intake Total 1160 / 1160 800 / 800 Balance 1160 / 1160 800 / 800 Intake: Oral 1160 / 1160 800 / 800 Other: Meal Dinner Percent of Meal Consumed 100% # Voids 1 1 Weight 148.597 kg Blood Glucose* 151 139 Patient Weight 12/18/16 23:59 Weight 148.597 kg - General physical appearance well developed, well nourished, no distress - Eyes normal ocular movement - ENT normal mucosa, atraumatic, normocephalic - Neck Neck exam: trachea midline - Respiratory normal expansion, normal respiratory effort - Abdomen Abdomen: Present: soft, non tender - Integumentary no rash, no growths - Neurologic CN 2-12 grossly intact - Musculoskeletal normal posture - Psychiatric oriented to time, oriented to person, oriented to place, speech is normal, memory intact - Labs 12/18/16 05:38 12/18/16 05:38 Diabetes panel 12/18/16 Range/Units 05:38 Sodium 134 L (136-145) mEq/L Potassium 4.1 (3.5-4.5) mEq/L Chloride 98 (98-109) mEq/L Carbon Dioxide 24 (19-29) mEq/L BUN 31 H D (8-26) mg/dL Creatinine 1.22 (0.72-1.25) mg/dL Glucose 143 H (70-99) mg/dL Calcium 9.1 (8.6-10.8) mg/dL Calcium panel 12/18/16 Range/Units 05:38 Calcium 9.1 (8.6-10.8) mg/dL Pituitary panel 12/18/16 Range/Units 05:38 Sodium 134 L (136-145) mEq/L Potassium 4.1 (3.5-4.5) mEq/L Chloride 98 (98-109) mEq/L Carbon Dioxide 24 (19-29) mEq/L BUN 31 H D (8-26) mg/dL Creatinine 1.22 (0.72-1.25) mg/dL Glucose 143 H (70-99) mg/dL Calcium 9.1 (8.6-10.8) mg/dL Adrenal panel 12/18/16 Range/Units 05:38 Sodium 134 L (136-145) mEq/L Potassium 4.1 (3.5-4.5) mEq/L Chloride 98 (98-109) mEq/L Carbon Dioxide 24 (19-29) mEq/L BUN 31 H D (8-26) mg/dL Creatinine 1.22 (0.72-1.25) mg/dL Glucose 143 H (70-99) mg/dL Calcium 9.1 (8.6-10.8) mg/dL Consult Discharge Plan - Plan Additional Instructions: Follow with primary care physician within the next 7 days. Follow with surgery as outpatient. Hold Xarelto for 2 days. Decrease dose of Lasix from 80 mg twice a day down to 60 mg twice a day. Consider discontinuing hydrochlorothiazide (needs to discuss with primary care physician). Stop Actos as it can cause leg edema/swelling. Referrals: Saida Franco MD [Partnered Physician] - (2.8.17 at 11:35 am hold xaralto for 2 days after colonoscopy, so ok to resume xaralto sunday ) Agatha Stone MD [Primary Care Provider] - Prescriptions: Furosemide [Lasix] 60 mg PO BID #60 tablet Omeprazole [PriLOSEC] 40 mg PO DAILY #30 cap <Saida Franco - Last Filed: 12/19/16 12:47> - Assessment and Plan (1) Anticoagulated Current Visit: Yes Status: Acute continue hold xaralto (2) Lower GI bleed Current Visit: Yes Status: Acute (3) Rectal polyp Current Visit: Yes Status: Acute Subjective Patient reports: no new complaints, flatus, bowel movement Objective Vital Signs - Last 8 Hours Temp Pulse Resp BP Pulse Ox 12/19/16 11:04 97.6 F 81 16 96/60 98 12/19/16 08:06 98.6 F 83 18 120/68 100 12/19/16 08:03 98.6 F 89 17 134/67 100 12/19/16 08:01 98.6 F 89 17 134/67 100 12/19/16 07:56 98.6 F 100 18 135/84 100 12/19/16 07:51 98.6 F 103 18 143/84 100 12/19/16 07:46 98.6 F 101 17 133/78 99 12/19/16 07:41 98.6 F 88 18 124/67 100 12/19/16 07:36 98.6 F 72 18 128/72 97 12/19/16 07:35 98.6 F 100 18 132/70 100 12/19/16 07:25 98.6 F 83 18 120/68 100 12/19/16 07:15 97.6 F 80 18 105/64 96 12/19/16 04:46 98.0 F 94 22 106/69 96 Intake and Output 12/18/16 12/19/16 12/19/16 23:59 07:59 15:59 Intake Total 0 / 0 0 / 0 Balance 0 / 0 0 / 0 Intake: Oral 0 / 0 0 / 0 Other: Meal npo Percent of Meal Consumed 0% # Voids 2 # Bowel Movements 2 Weight 146.057 kg Blood Glucose* 178 159 153 Patient Weight 12/19/16 23:59 Weight 146.057 kg - General physical appearance well developed, well nourished, no distress - Eyes PERRL, normal ocular movement - ENT normal mucosa, normocephalic - Neck Neck exam: trachea midline - Respiratory normal expansion, normal respiratory effort - Abdomen Abdomen: Present: soft, non tender - Integumentary no rash, no growths - Neurologic CN 2-12 grossly intact - Musculoskeletal normal posture - Psychiatric oriented to time, oriented to person, oriented to place, speech is normal, memory intact - Labs 12/19/16 06:07 12/19/16 06:07 Diabetes panel 12/19/16 Range/Units 06:07 Sodium 135 L (136-145) mEq/L Potassium 3.8 (3.5-4.5) mEq/L Chloride 97 L (98-109) mEq/L Carbon Dioxide 26 (19-29) mEq/L BUN 20 D (8-26) mg/dL Creatinine 1.20 (0.72-1.25) mg/dL Glucose 166 H (70-99) mg/dL Calcium 9.7 (8.6-10.8) mg/dL Calcium panel 12/19/16 Range/Units 06:07 Calcium 9.7 (8.6-10.8) mg/dL Pituitary panel 12/19/16 Range/Units 06:07 Sodium 135 L (136-145) mEq/L Potassium 3.8 (3.5-4.5) mEq/L Chloride 97 L (98-109) mEq/L Carbon Dioxide 26 (19-29) mEq/L BUN 20 D (8-26) mg/dL Creatinine 1.20 (0.72-1.25) mg/dL Glucose 166 H (70-99) mg/dL Calcium 9.7 (8.6-10.8) mg/dL Adrenal panel 12/19/16 Range/Units 06:07 Sodium 135 L (136-145) mEq/L Potassium 3.8 (3.5-4.5) mEq/L Chloride 97 L (98-109) mEq/L Carbon Dioxide 26 (19-29) mEq/L BUN 20 D (8-26) mg/dL Creatinine 1.20 (0.72-1.25) mg/dL Glucose 166 H (70-99) mg/dL Calcium 9.7 (8.6-10.8) mg/dL - Attending Attestation I examined this patient and my medical decision-making was reviewed with the MULE SPINNER/PA/Advanced Practice Nurse/Resident Physician. I agree with the documented findings, disposition and treatment plan as described except to the extent set forth below.
--- NOTE | 2016-12-18 11:24 | Internal Med Progress Note ---
Date of Encounter: 12/18/16 Time of Encounter: 09:45 - Assessment and plan (1) Lower GI bleed Current Visit: Yes Status: Acute Assessment and plan: patient on chronic anticoagulation with Xarelto for afib. presented with dark bloody stools. no prior episodes of GI bleed in the past. CTAP showed diverticulosis. hgb 10.7 from 12.4 on admission. patient is hemodynamically stable. could be secondary to diverticular bleed. continue medical management with IV fluids, close monitoring of hgb. Appreciate surgical input. plan for colonoscopy tomorrow. (2) Acute hyponatremia Current Visit: Yes Status: Acute Assessment and plan: likely from dehydration and furosemide use. Na was 127 on admission. improved after IV fluids. sodium is 134. (3) Acute renal failure superimposed on stage 3 chronic kidney disease Current Visit: No Status: Chronic Assessment and plan: Acute event secondary to Gi bleed. Improved after IV fluids. close monitoring. avoid nephrotoxins as possible. (4) Atrial fibrillation Current Visit: No Status: Chronic Assessment and plan: heart rate is controlled. continue coreg and diltiazem. Qualifiers: Atrial fibrillation type: chronic Qualified Code(s): I48.2 - Chronic atrial fibrillation (5) CAD (coronary artery disease) Current Visit: No Status: Chronic Assessment and plan: stable. continue bblocker, and statin. holding asa due to GI bleed. Qualifiers: Coronary Disease-Associated Artery/Lesion type: [place] artery [place] vs. transplanted heart: [place] heart Associated angina: without angina Qualified Code(s): I25.10 - Atherosclerotic heart disease of [place] coronary artery without angina pectoris (6) Chronic anticoagulation Current Visit: No Status: Chronic Assessment and plan: on xarelto for afib (7) Diabetes Current Visit: No Status: Chronic Assessment and plan: fasting glucose is 139. continue levemir, insulin sliding scale and diabetic diet. Qualifiers: Diabetes mellitus type: type 2 Diabetes mellitus complication status: with kidney complications Diabetes mellitus complication detail: with chronic kidney disease Diabetes mellitus remote computer terminal operator insulin use: without remote computer terminal operator use Chronic kidney disease stage: stage 3 (moderate) Qualified Code(s): E11.22 - Type 2 diabetes mellitus with diabetic chronic kidney disease; N18.3 - Chronic kidney disease, stage 3 (moderate) (8) Hypertension Current Visit: No Status: Chronic Assessment and plan: Controlled. continue coreg, diltiazem and furosemide. Hold lisinopril and HCTZ due to hyponatremia. Qualifiers: Hypertension type: essential hypertension Qualified Code(s): I10 - Essential (primary) hypertension (9) Morbid obesity with BMI of 45.0-49.9, adult Current Visit: No Status: Chronic - Subjective Interval history: no BM today. no abdominal pain. - Constitutional Vitals: Temp Pulse Resp BP Pulse Ox 98.5 F 80 20 116/69 95 12/18/16 07:19 12/18/16 07:19 12/18/16 07:19 12/18/16 07:19 12/18/16 07:19 General appearance: Present: cooperative, A&O X 3, morbidly obese, pleasant, no acute distress, answers questions appropriately - Eye Eye exam: Present: PERRL, sclera anicteric - Neck Neck exam general surgery: Present: supple, trachea midline. Absent: lymphadenopathy - Respiratory Respiratory exam: Present: CTAB - Cardiovascular Cardiovascular exam: Present: RRR - GI/Abdominal GI/Abdominal exam: Present: normal bowel sounds, soft. Absent: diminished bowel sounds, tenderness - Extremities Exam Extremities exam: Present: pedal edema - Neurological Exam Neurological exam: Present: alert, oriented X3, no focal deficits. Absent: facial droop, speech deficit - Skin Skin exam: Absent: rash Internal Medicine: Result - Labs CBC & Chem 7: 12/18/16 05:38 12/18/16 05:38 Labs: Short CBC 12/17/16 12/18/16 Range/Units 17:47 05:38 WBC 8.2 (4.3-11.1) K/mcL Hgb 11.6 L 10.7 L (12.9-16.9) g/dL Hct 36.3 L 32.8 L (37.5-50.1) % Plt Count 202 (140-400) K/mcL Neutrophils # 6.0 (1.6-8.9) K/mcL BMP 12/18/16 05:38 Sodium 134 L Potassium 4.1 Chloride 98 Carbon Dioxide 24 BUN 31 H D Creatinine 1.22 Glucose 143 H Calcium 9.1 - ABG Interpretation ABG results: PT/INR, D-dimer PT 20.9 Seconds (9.4-12.1) H 12/16/16 11:36 Consult Discharge Plan - Plan Referrals: Agatha Stone MD [Primary Care Provider] -
--- NOTE | 2016-12-18 13:17 | Podiatry Progress Note ---
Date of Encounter: 12/18/16 Time of Encounter: 12:30 - Assessment and Plan (1) Onychomycosis Current Visit: Yes Status: Acute #1 Exam and evaluate #2 Discuss and educate on diabetic foot care and necessity for daily inspection of skin. Discuss proper footwear fit and size. #3 Debridement of nails x2 mycotic and x8 dystrophic in Length, width and thickness with nail nipper and nail grinder hand to debulk nails to prevent infection /ulceration. No complication ensued. #4 Discussed need to follow up in clinic. Will need 3 month follow up appointment for diabetic nail care. #5 Call with any further needs while patient is inpatient. (2) Diabetes Current Visit: No Status: Chronic Qualifiers: Diabetes mellitus type: type 2 Diabetes mellitus complication status: with kidney complications Diabetes mellitus complication detail: with chronic kidney disease Diabetes mellitus superintendent terminal insulin use: without longterm use Chronic kidney disease stage: stage 3 (moderate) Qualified Code(s): E11.22 - Type 2 diabetes mellitus with diabetic chronic kidney disease; N18.3 - Chronic kidney disease, stage 3 (moderate) (3) Type 2 diabetes mellitus Current Visit: Yes Status: Acute Qualifiers: Diabetes mellitus complication status: with unspecified complications Diabetes mellitus superintendent terminal insulin use: without longterm use Qualified Code( s): E11.8 - Type 2 diabetes mellitus with unspecified complications Subjective Interval history: This is a 46 year old man of which we were consulted for diabetic foot exam and nail care. has a medical history significant for DM type 2, hyperlipidemia, a-fib, and CAD who presented to ED with GI bleed. He is undergoing prep for colonoscopy tomorrow. Patient denies any previous diabetic nail care. Patient states that his nails are long and painful with ambulation. Patient denies any recent injury to either foot. Patient denies any recent falls. Patient denies any numbness, tingling, shooting, or burning pain. Patient states glucose is not well controlled. Patient denies any fevers, chills , n/v, flu like symptoms or calf pain Objective - Vital Signs Vital Signs: Vital Signs Temp Pulse Resp BP Pulse Ox 12/18/16 11:27 97.4 F L 78 20 107/74 96 12/18/16 07:19 98.5 F 80 20 116/69 95 12/18/16 04:02 98.5 F 77 16 92/50 94 L 12/17/16 23:19 98.2 F 91 16 98/62 97 12/17/16 19:41 96 12/17/16 19:40 112/64 12/17/16 19:23 98.5 F 93 16 88/43 96 12/17/16 16:11 98.4 F 58 16 109/70 100 Intake and Output 12/17/16 12/18/16 12/18/16 23:59 07:59 15:59 Intake Total 1160 / 1160 800 / 800 840 / 840 Balance 1160 / 1160 800 / 800 840 / 840 Intake: Oral 1160 / 1160 800 / 800 840 / 840 Other: Meal Dinner Lunch Percent of Meal Consumed 100% Stool Size Moderate Stool Consistency loose liquid Stool Color Brown # Voids 1 1 1 # Bowel Movements 3 Weight 148.597 kg Blood Glucose* 151 139 179 Patient Weight 12/18/16 23:59 Weight 148.597 kg - Exam Exam: General Examination: CONSTITUTIONAL: Alert, oriented, in no acute distress, non-toxic. EXTREMITIES: CFT 3 seconds all toes. Edema +1 and pedal pulses palpable, stasis dermatitis noted to lateral aspect of tibial region bilaterally SKIN: Skin with decreased turgor, decreased subcutaneous tissue, skin thin and shiny with trophic changes associated with comorbidities as described in history. No signs of ulcerations or wounds No signs of tinea pedis. Poor hygiene noted. NEUROLOGIC: Grossly intact sensation to light touch, no appearance of loss of protective sensation Nail Pathology: Nails #1 and #5 bilaterally thick, elongated and mycotic. Nails #2 #3 #4 bilaterally are thick elongated and dystrophic. Sub ungual debris noted throughout. - Lab Result Diagrams: 12/18/16 05:38 12/18/16 05:38 Labs: Abnormal lab results RBC 4.15 M/mcL (4.19-5.50) L 12/18/16 05:38 Hgb 10.7 g/dL (12.9-16.9) L 12/18/16 05:38 Hct 32.8 % (37.5-50.1) L 12/18/16 05:38 MCV 79.0 fL (83.0-100.0) L 12/18/16 05:38 MCH 25.8 pg (28.0-33.3) L 12/18/16 05:38 RDW 17.2 % (11.5-14.5) H 12/18/16 05:38 MPV 8.5 fL (9.4-12.4) L 12/18/16 05:38 PT 20.9 Seconds (9.4-12.1) H 12/16/16 11:36 APTT 47.3 Seconds (26.0-36.0) H 12/16/16 11:36 Sodium 134 mEq/L (136-145) L 12/18/16 05:38 BUN 31 mg/dL (8-26) H D 12/18/16 05:38 Glucose 143 mg/dL (70-99) H 12/18/16 05:38 POC Glucose 179 (58-89) H 12/18/16 11:46 Hemoglobin A1c 8.8 % (-5.6) H 12/17/16 01:08 Globulin 4.2 g/dL (2.4-3.5) H 12/16/16 11:36 Albumin/Globulin Ratio 0.9 (1.1-2.2) L 12/16/16 11:36 Stool Occult Blood Positive (Negative) A 12/16/16 13:35 Consult Discharge Plan - Plan Referrals: Agatha Stone MD [Primary Care Provider] -
[2016-12-19] MEDS: Insulin LISPRO 300 UNITS/3 ML VIAL SQ SCH ×4 (02:57→13:04)
[2016-12-19 06:19] LABS: Basophils # 0.1 K/mcL (0.0-0.2); Basophils % 0.6 %; Eosinophils # 0.1 K/mcL (0.0-0.6); Eosinophils % 1.6 %; Hematocrit 34.5 % (37.5-50.1); Hemoglobin 10.9 g/dL (12.9-16.9); Immature Granulocytes % 0.5 % (0-4); Lymphocytes # 1.1 K/mcL (0.6-4.6); Lymphocytes % 12.4 %; Mean Corpuscular HGB Conc 31.6 g/dL (31.6-35.5); Mean Corpuscular Hemoglobin 25.2 pg (28.0-33.3); Mean Corpuscular Volume 79.7 fL (83.0-100.0); Mean Platelet Volume 8.3 fL (9.4-12.4); Monocytes # 0.8 K/mcL (0.0-1.3); Monocytes % 8.5 %; Neutrophils # 6.8 K/mcL (1.6-8.9); Platelet Count 212 K/mcL (140-400); Red Blood Count 4.33 M/mcL (4.19-5.50); Red Cell Distribution Width 16.9 % (11.5-14.5); Segmented Neutrophils % 76.4 %
[2016-12-19 06:33] LABS: BUN/Creatinine Ratio 17 (6-26); Calcium 9.7 mg/dL (8.6-10.8); Carbon Dioxide 26 mEq/L (19-29); Chloride 97 mEq/L (98-109); Glucose 166 mg/dL (70-99); Magnesium 1.9 mg/dL (1.6-2.6); Osmolality,Calculated 286 (280-300); Potassium 3.8 mEq/L (3.5-4.5); Sodium 135 mEq/L (136-145); eGFR For African Americans > 60 (> 60); eGFR For Non-African Americans > 60 (> 60)
[2016-12-19 06:34] LABS: Blood Urea Nitrogen 20 mg/dL (8-26)
[2016-12-19] MEDS ORDERED: *HR* FentaNYL (PF) 100 MCG/2 ML VIAL ONE (07:18)
[2016-12-19] MEDS ORDERED: *HR* Midazolam HCl 5 MG/5 ML VIAL IVP ONE (07:19)
[2016-12-19] MEDS ORDERED: Simethicone 40 MG/0.6 ML MLS IR ONE (07:32)
[2016-12-19] MEDS ORDERED: *HR* Promethazine 25 MG/ML VIAL IVP ONE (07:32)
[2016-12-19] MEDS ORDERED: *HR* FentaNYL (PF) 100 MCG/2 ML VIAL IVP PRN (07:32)
[2016-12-19] MEDS: *HR* Midazolam HCl 5 MG/5 ML VIAL IVP PRN ×2 (07:36→07:41)
[2016-12-19] MEDS ORDERED: 0.9 % Sodium Chloride 1,000 ML IVC SCH (07:45)
[2016-12-19] MEDS: Furosemide 40 MG TABLET PO SCH (09:45)
[2016-12-19] MEDS: Fluticasone Propionate Nasal 50 MCG/SPRAY BOTTLE NS SCH (09:45)
[2016-12-19] MEDS: dilTIAZem HCl 60 MG TABLET PO SCH (09:45)
[2016-12-19] MEDS: Insulin DETEMIR 100 UNIT/ML X5UNITS SQ SCH (09:48)
--- NOTE | 2016-12-19 10:04 | General Surgery Progress Note ---
Date of Encounter: 12/19/16 Time of Encounter: 08:30 - Assessment and Plan (1) Anticoagulated Current Visit: Yes Status: Acute (2) Lower GI bleed Current Visit: Yes Status: Acute (3) Rectal polyp Current Visit: Yes Status: Acute patient had a very large at least 4.5 cm rectal polyp at 20 cm, the polyp was completely removed, area tatoo'd and clip placed patient will need to hold xaralto for 48 hrs after procedure and then may resume ok for diet follow-up with me in office 2.8. at 11:35 am Subjective Patient reports: no new complaints, tolerating liquids well, flatus, diarrhea ( due to bowel prep, no further bleeding) Objective Vital Signs - Last 8 Hours Temp Pulse Resp BP Pulse Ox 12/19/16 08:06 98.6 F 83 18 120/68 100 12/19/16 08:03 98.6 F 89 17 134/67 100 12/19/16 08:01 98.6 F 89 17 134/67 100 12/19/16 07:56 98.6 F 100 18 135/84 100 12/19/16 07:51 98.6 F 103 18 143/84 100 12/19/16 07:46 98.6 F 101 17 133/78 99 12/19/16 07:41 98.6 F 88 18 124/67 100 12/19/16 07:36 98.6 F 72 18 128/72 97 12/19/16 07:35 98.6 F 100 18 132/70 100 12/19/16 07:25 98.6 F 83 18 120/68 100 12/19/16 07:15 97.6 F 80 18 105/64 96 12/19/16 04:46 98.0 F 94 22 106/69 96 Intake and Output 12/18/16 12/19/16 12/19/16 23:59 07:59 15:59 Intake Total 0 / 0 0 / 0 Balance 0 / 0 0 / 0 Intake: Oral 0 / 0 0 / 0 Other: Meal npo Percent of Meal Consumed 0% # Voids 2 # Bowel Movements 2 Weight 146.057 kg Blood Glucose* 178 159 Patient Weight 12/19/16 23:59 Weight 146.057 kg - General physical appearance well nourished, no distress, obese - Eyes PERRL, normal ocular movement - ENT normal mucosa, normocephalic - Neck Neck exam: trachea midline - Abdomen Abdomen: Present: bowel sounds present, soft, non tender - Integumentary no growths - Neurologic CN 2-12 grossly intact - Musculoskeletal normal gait, normal posture - Psychiatric oriented to time, memory intact - Labs 12/19/16 06:07 12/19/16 06:07 Diabetes panel 12/19/16 Range/Units 06:07 Sodium 135 L (136-145) mEq/L Potassium 3.8 (3.5-4.5) mEq/L Chloride 97 L (98-109) mEq/L Carbon Dioxide 26 (19-29) mEq/L BUN 20 D (8-26) mg/dL Creatinine 1.20 (0.72-1.25) mg/dL Glucose 166 H (70-99) mg/dL Calcium 9.7 (8.6-10.8) mg/dL Calcium panel 12/19/16 Range/Units 06:07 Calcium 9.7 (8.6-10.8) mg/dL Pituitary panel 12/19/16 Range/Units 06:07 Sodium 135 L (136-145) mEq/L Potassium 3.8 (3.5-4.5) mEq/L Chloride 97 L (98-109) mEq/L Carbon Dioxide 26 (19-29) mEq/L BUN 20 D (8-26) mg/dL Creatinine 1.20 (0.72-1.25) mg/dL Glucose 166 H (70-99) mg/dL Calcium 9.7 (8.6-10.8) mg/dL Adrenal panel 12/19/16 Range/Units 06:07 Sodium 135 L (136-145) mEq/L Potassium 3.8 (3.5-4.5) mEq/L Chloride 97 L (98-109) mEq/L Carbon Dioxide 26 (19-29) mEq/L BUN 20 D (8-26) mg/dL Creatinine 1.20 (0.72-1.25) mg/dL Glucose 166 H (70-99) mg/dL Calcium 9.7 (8.6-10.8) mg/dL - VTE Documentation of Mechanical Device: Intermittent pneumatic compression device Consult Discharge Plan - Plan Referrals: Agatha Stone MD [Primary Care Provider] - Saida Franco MD [Partnered Physician] - (2.8.17 at 11:35 am hold xaralto for 2 days after colonoscopy, so ok to resume xaralto sunday )
[2016-12-19 11:12] VITALS: BP 96/60
--- NOTE | 2016-12-19 12:33 | Discharge Summary ---
Date of Encounter: 12/19/16 Time of Encounter: 12:31 - Discharge Diagnosis (1) Lower GI bleed Priority: Primary Status: Acute Comments: Acute blood loss anemia secondary to lower GI bleed/rectal polyp status post complete resection by colonoscopy Hold Xarelto for 2 days (2) Acute hyponatremia Priority: Secondary Status: Acute Comments: Secondary to diuretics Decreased the dose of Lasix, consider discontinuing hydrochlorothiazide Discontinue Actos as it can contribute with peripheral edema and CHF Almost completely resolved (3) Rectal polyp Priority: Primary Status: Acute (4) Type 2 diabetes mellitus Priority: Secondary Status: Acute Qualifiers: Diabetes mellitus complication status: with unspecified complications Diabetes mellitus skilled nursing insulin use: without skilled nursing use Qualified Code( s): E11.8 - Type 2 diabetes mellitus with unspecified complications (5) Diverticulosis Priority: Secondary Status: Chronic Qualifiers: Diverticulosis site: diverticulosis of large intestine Diverticulosis bleeding: diverticulosis with bleeding Qualified Code(s): K57.31 - Diverticulosis of large intestine without perforation or abscess with bleeding (6) Renal failure (ARF), acute on chronic Priority: Primary Status: Acute Comments: Acute and chronic renal failure Resolved (7) Atrial fibrillation Priority: Secondary Status: Chronic Comments: Continue carvedilol Qualifiers: Atrial fibrillation type: chronic Qualified Code(s): I48.2 - Chronic atrial fibrillation (8) Diabetes Priority: Secondary Status: Chronic Qualifiers: Diabetes mellitus type: type 2 Diabetes mellitus complication status: with kidney complications Diabetes mellitus complication detail: with chronic kidney disease Diabetes mellitus skilled nursing insulin use: without skilled nursing use Chronic kidney disease stage: stage 3 (moderate) Qualified Code(s): E11.22 - Type 2 diabetes mellitus with diabetic chronic kidney disease; N18.3 - Chronic kidney disease, stage 3 (moderate) (9) Hyperlipidemia Priority: Secondary Status: Chronic Qualifiers: Hyperlipidemia type: unspecified Qualified Code(s): E78.5 - Hyperlipidemia , unspecified - Discharge Medications Prescriptions: Furosemide [Lasix] 60 mg PO BID #60 tablet Omeprazole [PriLOSEC] 40 mg PO DAILY #30 cap Home Medications: Metformin [Glucophage] 500 mg PO BIDWM 03/21/16 [History] Rivaroxaban [Xarelto] 20 mg PO DAILY 03/21/16 [History] Fluticasone Propionate Nasal [Flonase] 50 mcg NS DAILY #0 03/22/16 [History] Glimepiride [Amaryl] 2 mg PO BID #0 03/22/16 [History] Lisinopril/Hydrochlorothiazide [Zestoretic 20-25 mg Tablet] 1 each PO DAILY #0 03/22/16 [History] Simvastatin [Zocor] 40 mg PO DAILY #0 03/22/16 [History] Aspirin 81 mg PO DAILY #90 tab.chew 03/23/16 [Rx] Nitroglycerin [Nitrostat] 0.4 mg SL AD PRN #30 tab 03/23/16 [Rx] Carvedilol 12.5 mg PO BID 30 Days 06/07/16 [Rx] Diltiazem HCl 90 mg PO TID 30 Days 06/07/16 [Rx] Potassium Chloride 20 meq PO DAILY #30 tab.er.prt 06/07/16 [Rx] Empagliflozin [Jardiance] 10 mg PO DAILY 12/16/16 [History] Furosemide [Lasix] 60 mg PO BID #60 tablet 12/19/16 [Rx] Omeprazole [PriLOSEC] 40 mg PO DAILY #30 cap 12/19/16 [Rx] Allergies/Adverse Reactions: Allergies No Known Allergies Allergy (Verified 12/16/16 14:36) Date of admission: 12/17/16 16:07 Primary care physician: Agatha Stone, - Patient Status Disposition: Home, Self-Care Condition: Good Overall status at discharge: patient is back to baseline - Discharge Instructions Follow Up With: Saida Franco MD [Partnered Physician] - (2.8.17 at 11:35 am hold xaralto for 2 days after colonoscopy, so ok to resume xaralto sunday ) Agatha Stone MD [Primary Care Provider] - Additional Instructions: Follow with primary care physician within the next 7 days. Follow with surgery as outpatient. Hold Xarelto for 2 days. Decrease dose of Lasix from 80 mg twice a day down to 60 mg twice a day. Consider discontinuing hydrochlorothiazide (needs to discuss with primary care physician). Stop Actos as it can cause leg edema/swelling. - Diet and Activity Activity: increase activity as tolerated Diet: diabetic diet Hospital course: Mr. Mcdonnell is a 46 year old male with history of DM, hyperlipidemia, a-fib, and CAD who presented to the ED today with c/o 1 day history of GI bleed, had dark bloody stools that "filled the toilet". Pt stated that his stool was green. Creatinine was 1.96 upon admission. Patient's sodium was 127 he was taking Lasix 80 mg twice a day and also hydrochlorothiazide. Sodium was corrected, surgery was consulted and schedule a colonoscopy that found a 4.5 cm rectal polyp at 20 cm, the polyp was completely removed, area tatoo'd and clip placed patient will need to hold xaralto for 48 hrs after procedure. Denies any further bleeding. Hemoglobin dropped from 11.6 down to 10.7 and has remained stable. The patient was advised to stop Actos and to decrease his dose of Lasix down to 16 mg twice a day. follow-up with surgery on 12.27.16 at 11:35 am - Time Spent with Patient Total time spent providing and/or coordinating discharge services: Greater than 30 minutes - Constitutional Vitals: Temp Pulse Resp BP Pulse Ox 97.6 F 81 16 96/60 98 12/19/16 11:04 12/19/16 11:04 12/19/16 11:04 12/19/16 11:04 12/19/16 11:04 General appearance: Present: cooperative, A&O X 3, morbidly obese, pleasant, no acute distress, answers questions appropriately - Head Head exam: Present: atraumatic, normocephalic - Eye Eye exam: Present: PERRL, conjuntiva pink, sclera anicteric Pupils: Present: PERRL - Neck Neck exam general surgery: Present: supple, trachea midline. Absent: lymphadenopathy - Respiratory Respiratory exam: Present: CTAB. Absent: accessory muscle use, rales, rhonchi, wheezes - Cardiovascular Cardiovascular exam: Present: RRR, +S1, +S2. Absent: diastolic murmur, gallop, rubs, systolic murmur - GI/Abdominal GI/Abdominal exam: Present: normal bowel sounds, soft, no peritoneal signs. Absent: distended, tenderness - Extremities Exam Extremities exam: Present: pedal edema (+1 pitting edema in both lower extremities), warm, radial pulses palpable and symetrical. Absent: calf tenderness, cyanotic - Neurological Exam Neurological exam: Present: CN II-XII intact, oriented X3, no focal deficits. Absent: pronater drift, facial droop, speech deficit - Skin Skin exam: Present: dry, intact - VTE Documentation of Mechanical Device: Intermittent pneumatic compression device
== END 2016-12-19 14:00 | disposition home or self-care (01) | DRG 378 ==
LOC: EMEROO 10:50 → 2ANU 10:50 → SUATTDRO 12-17 16:07
PROVIDERS: ADMIT Internal Medicine; ATTEND Internal Medicine

== ENCOUNTER 2018-02-09 03:20 | Observation (INO) ==
[2018-02-09] MEDS ORDERED: Dextrose Gel 15 GM/37.5 ML TUBE PO PRN ×2 (04:54)
[2018-02-09] MEDS ORDERED: D5% in Water 1,000 ML IVC PRN (04:54)
[2018-02-09] MEDS ORDERED: *HR* Dextrose 50 % in Water (Syg) 50 ML SYRINGE IVP PRN (04:54)
--- NOTE | 2018-02-09 04:58 | Internal Med History&Physical ---
Date of Encounter: 02/09/18 Time of Encounter: 04:56 Assessment and Plan (1) Ileus Current visit: Yes Status: Acute Ileus on CT A/P versus early SBO ? but clinically appears well. He is hungry and wants to eat monitor for now check AXR in a.m We will hold surgical consult for now given lack of clinical symptoms. If needed Dr. Smith should be on board given that the case was discussed with him prior to transfer (2) Viral gastroenteritis Current visit: Yes Status: Acute symptoms likely related to viral gastroenteritis he is hungry, we will try full liquids for now IV anti emetics as tolerated (3) Afib Current visit: Yes Status: Acute he is unsure of cardizem dose continue coreg continue xarelto Qualifiers: Atrial fibrillation type: paroxysmal Qualified Code(s): I48.0 - Paroxysmal atrial fibrillation (4) DMII (diabetes mellitus, type 2) Current visit: Yes Status: Acute hold oral agent ISS for now Qualifiers: Diabetes mellitus group home insulin use: with terminal gauger use Diabetes mellitus complication status: without complication Qualified Code(s): E11.9 - Type 2 diabetes mellitus without complications; Z79.4 - terminal press operator (current) use of insulin; Z79.4 - terminal press operator (current) use of insulin; Z79.4 - terminal press operator ( current) use of insulin; Z79.4 - USP (current) use of insulin (5) Atrial fibrillation Current visit: No Status: Chronic Qualifiers: Atrial fibrillation type: paroxysmal Qualified Code(s): I48.0 - Paroxysmal atrial fibrillation Internal Medicine - H&P: HPI Chief complaint: UGI symptoms History of present illness: Mr. Mcdonnell is a 47 year old male history of atrial fibrillation on Xarelto rate control, hyperlipidemia, diabetes type 2 who presents as a transfer from [facility] for abnormal CT imaging concerning for reports of ileus versus partial small bowel obstruction. History obtained from patient suggest that he developed epigastric, periumbilical symptoms when he woke up in the morning yesterday. He could not relax, developed emesis, brown discoloration, frequency of 3-4 times. He could tolerate chicken noodles soup yesterday. Associated with diarrhea 3 described as brown and watery. CT abdomen pelvis imaging report reviewed had nonspecific features and report was suggesting possible ileus versus early partial small bowel obstruction. Past Med Surg Social Fam HX - Past Medical History Medical history: arthritis, atrial fibrillation, COPD, diabetes, GERD, hyperlipidemia, hypertension Psychiatric history: no psych history - Past Surgical History Surgical History: other - Social History Smoking Status: Never smoker Smokeless Tobacco Status: Yes (4-5 years) Alcohol use: none Drug use: none - Family History Mother Hx Family Cancer: Yes (melanoma) Father Living Status: Hx Family Cardiac Disorders: Yes Hx Family Cancer: Yes Internal Medicine - H&P: Meds Rivaroxaban [Xarelto] 20 mg PO DAILY 03/21/16 [History] metFORMIN [Glucophage] 500 mg PO BIDWM 03/21/16 [History] Fluticasone Propionate Nasal [Flonase] 50 mcg NS DAILY #0 03/22/16 [History] Glimepiride [Amaryl] 2 mg PO BID #0 03/22/16 [History] Lisinopril/Hydrochlorothiazide [Zestoretic 20-25 mg Tablet] 1 each PO DAILY #0 03/22/16 [History] Simvastatin [Zocor] 40 mg PO DAILY #0 03/22/16 [History] Aspirin 81 mg PO DAILY #90 tab.chew 03/23/16 [Rx] Nitroglycerin [Nitrostat] 0.4 mg SL AD PRN #30 tab 03/23/16 [Rx] Carvedilol 12.5 mg PO BID 30 Days tablet 06/07/16 [Rx] Potassium Chloride 20 meq PO DAILY #30 tab.er.prt 06/07/16 [Rx] dilTIAZem HCl [Diltiazem HCl] 90 mg PO TID 30 Days tablet 06/07/16 [Rx] Empagliflozin [Jardiance] 10 mg PO DAILY 12/16/16 [History] Furosemide [Lasix] 60 mg PO BID #60 tablet 12/19/16 [Rx] Omeprazole [PriLOSEC] 40 mg PO DAILY #30 cap 12/19/16 [Rx] 3 Allergy/AdvReac Type Severity Reaction Status Date / Time No Known Allergies Allergy Verified 12/16/16 14:36 All Systems PM: A 10-system review of systems was performed and is negative for pertinent findings except as documented above in the HPI. Review of systems: ROS 14 point review of systems reviewed as best as possible given presentation. Pertinent positive or negative as per HPI or otherwise reviewed as negative - Constitutional Vitals: temp 97.5, BP 143/68, HR 72, RR18 Exam: General - AAO x 3 Psych - Appropriate affect/speech. No agitation Eyes - ASAF. Eye lids intact. No scleral icterus Neuro - No gross peripheral or central neuro deficits on inspection Heart - Sinus. S1 and S2 present. No added HS/murmurs appreciated. No elevated JVD appreciated. Lung - Adequate air entry b/l, No crackles/wheezes appreciated GI - Soft, non-tender. No hepatosplenomegaly/ascites. BS+ - No CVA/suprapubic tenderness or palpable bladder distension Skin - Intact. No rash/petechiae/ecchymosis. Warm extremities
[2018-02-09] MEDS ORDERED: Naloxone 0.4 MG/ML INJ IVP PRN (04:59)
[2018-02-09] MEDS ORDERED: Prochlorperazine 10 MG/2 ML VIAL IVP PRN (05:01)
[2018-02-09] MEDS ORDERED: Ondansetron 4 MG/2 ML VIAL IVP PRN (05:01)
[2018-02-09] MEDS: *HR* Rivaroxaban 10 MG TABLET PO SCH (08:29)
[2018-02-09] MEDS: Aspirin 81 MG TAB.CHEW PO SCH (08:29)
[2018-02-09] MEDS: Insulin LISPRO 300 UNITS/3 ML VIAL SQ SCH ×3 (08:29→16:26)
[2018-02-09] MEDS: Empagliflozin [Jardiance] 10 MG PO SCH (08:30)
[2018-02-09] MEDS: Fluticasone Propionate Nasal 50 MCG/SPRAY BOTTLE NS SCH (08:41)
--- NOTE | 2018-02-09 11:33 | General Surgery Consult Note ---
Date of Encounter: 02/09/18 Time of Encounter: 11:00 History of Present Illness Consult date: 02/09/18 Reason for consult: abdominal pain Requesting physician: Zoraida Mike History of present illness: 47-year-old transferred from [facility] early this morning for further evaluation and treatment acute onset abdominal pain,distention accompanied by N&V. The patient describes abrupt onset of abdominal pain and distention to the point that he could not lie down comfortably. CT abdomen and pelvis completed at [facility] demonstrated localized dilatation of the small bowel suggestive of an ileus versus small bowel obstruction I was notified at 0245 of this transfer with request for possible surgical assistance. Since transfer to [facility] the patient's acute symptoms have resolved. The patient indicates he began passing flatus with decompression of his abdomen and resolution of his abdominal pain. He is currently in no acute distress. He describes being hungry, no further N or V. Past medical history: obesity, diabetes mellitus, atrial fibrillation with chronic anticoagulation; hypertension, hyperlipidemia; COPD Surgical history: Patient denies any abdominal surgery, no previous history of tonsillectomy, myringotomies, or appendectomy Allergies: No known drug allergies Medications: Rivaroxaban 20 mg by mouth daily Metformin 500 mg by mouth twice a day Fluticasone 50 g nasally daily Glimepiride 2 mg by mouth twice a day Lisinopril with hydrochlorothiazide 20/25 one by mouth daily Simvastatin 40 mg by mouth daily Aspirin 81 mg by mouth daily Nitroglycerin 0.4 mg sublingually as directed as needed for chest pain Carbon dye load 12.5 mg by mouth twice a day ` Potassium 20 mEq by mouth daily Diltiazem 90 mg by mouth 3 times a day Empagliflozin 10 mg by mouth daily Furosemide 60 mg by mouth twice a day Omeprazole 40 mg by mouth daily Social history: Patient admits to chewing tobacco since the age of 14 ( approximately 32 years); patient denies any alcohol consumption or illicit drug use Physical examination: Obese male who appears slightly older than his stated age sitting comfortably at bedside. In no acute distress. He is 1.8 m tall, 145.16 kg, BMI 44.6; the patient has been afebrile since his transfer to [place], currently 97.7, pulse 89, respirations 18, blood pressure 138/87. SPO2 on room air 97% The patient demonstrates poor hygiene but skin is warm, no obvious jaundice Lungs: Clear; no abdominal pain and deep inspiration Cardiac: Regular rate, no appreciable murmurs Abdomen: Obese, protuberant, but nontender. No obvious intra-abdominal masses. No surgical scars on the anterior abdominal wall Active bowel sounds extremities: Dirty feet but no obvious clubbing, cyanosis or edema. CT abdomen and pelvis from [facility] was reviewed Abdominal series ordered this morning is still pending Impression: 47-year-old male transferred from [facility] after presenting there with abrupt onset abdominal pain, distention , nausea and vomiting. CT abdomen and pelvis demonstrated findings consistent with an ileus total small bowel obstruction could not be excluded. The acute symptoms have resolved. The patient is currently feeling well. He abdominal distention and pain have resolved and the patient is passing flatus. With no history of prior transabdominal surgery likelihood of a small bowel obstruction is quite low. The patient may have experienced acute viral gastroenteritis is some other nonspecific entity. With resolution of his symptoms it does not appear that the patient will require surgical intervention. Recommendations: Abdominal series as ordered Allow diet; begin with clear liquids and if tolerated and advance to diabetic diet If symptoms recur, consider small bowel follow-through. There are currently no acute findings that warrant surgical intervention. Thank you for this consultation. Past Med Surg Social Fam HX - Past Medical History Medical history: arthritis, atrial fibrillation, COPD, diabetes, GERD, hyperlipidemia, hypertension Psychiatric history: no psych history - Past Surgical History Surgical History: other - Social History Smoking Status: Never smoker Smokeless Tobacco Status: Yes (4-5 years) Alcohol use: none Drug use: none - Family History Mother Age: 61 Living Status: Cause of : cancer Hx Family Cardiac Disorders: Yes Hx Family Respiratory Disorders: No Hx Family Cancer: Yes (melanoma) Hx Family GI Disorders: No Hx Family Genitourinary Disorders: No Hx Family Endocrine Disorder: Yes (Pt states he is diabetic. Unsure about family ) Hx Family Musculoskeletal Disorders: No Hx Family Neuromuscular Disorders: No Hx Family Neurologic Disorders: No Hx Family HEENT Disorders: No Hx Family Autoimmune Disorders: No Hx Family Reproductive Disorders: No Hx Family Psychosocial Disorders: No Hx Family Medical Disorders: No Father Living Status: Hx Family Cardiac Disorders: Yes Hx Family Cancer: Yes Medications and Allergies Rivaroxaban [Xarelto] 20 mg PO DAILY 03/21/16 [History] metFORMIN [Glucophage] 500 mg PO BIDWM 03/21/16 [History] Fluticasone Propionate Nasal [Flonase] 50 mcg NS DAILY #0 03/22/16 [History] Glimepiride [Amaryl] 2 mg PO BID #0 03/22/16 [History] Lisinopril/Hydrochlorothiazide [Zestoretic 20-25 mg Tablet] 1 each PO DAILY #0 03/22/16 [History] Simvastatin [Zocor] 40 mg PO DAILY #0 03/22/16 [History] Aspirin 81 mg PO DAILY #90 tab.chew 03/23/16 [Rx] Nitroglycerin [Nitrostat] 0.4 mg SL AD PRN #30 tab 03/23/16 [Rx] Carvedilol 12.5 mg PO BID 30 Days tablet 06/07/16 [Rx] Potassium Chloride 20 meq PO DAILY #30 tab.er.prt 06/07/16 [Rx] dilTIAZem HCl [Diltiazem HCl] 90 mg PO TID 30 Days tablet 06/07/16 [Rx] Empagliflozin [Jardiance] 10 mg PO DAILY 12/16/16 [History] Furosemide [Lasix] 60 mg PO BID #60 tablet 12/19/16 [Rx] Omeprazole [PriLOSEC] 40 mg PO DAILY #30 cap 12/19/16 [Rx] 3 Allergy/AdvReac Type Severity Reaction Status Date / Time No Known Allergies Allergy Verified 12/16/16 14:36 Review of Systems All systems PM: The remainder of the systems were reviewed and are negative General Surgery Exam Initial Vital Signs Temp Pulse Resp BP Pulse Ox 97.5 F L 72 18 143/68 96 02/09/18 05:01 02/09/18 05:01 02/09/18 05:01 02/09/18 05:01 02/09/18 05:01 Exam Initial Vital Signs Temp Pulse Resp BP Pulse Ox 97.5 F L 72 18 143/68 96 02/09/18 05:01 02/09/18 05:01 02/09/18 05:01 02/09/18 05:01 02/09/18 05:01 Results - Labs Abnormal lab results POC Glucose 333 (58-89) H 02/09/18 07:25 All other labs normal. Consult Discharge Plan - Plan Referrals: Agatha Stone MD [Primary Care Provider] -
--- NOTE | 2018-02-09 16:05 | Internal Med Progress Note ---
Date of Encounter: 02/09/18 Time of Encounter: 16:04 - Assessment and plan (1) Ileus Current Visit: Yes Status: Acute Assessment and plan: Ileus versus small bowel obstruction. Continue with nothing by mouth. Gastrografin small bowel follow-through. Consult to surgery. IV fluids. IV Protonix. (2) Viral gastroenteritis Current Visit: Yes Status: Acute Assessment and plan: IV fluids. Supportive care. Pain and nausea medication. - Subjective Interval history: Patient presented to the hospital for severe, crampy periumbilical abdominal pain that started yesterday. The pain has resolved over the last 24 hours with bowel rest and IV medication. He reports no associated nausea or vomiting. He has been passing gas. - Constitutional Vitals: Temp Pulse Resp BP Pulse Ox 98.0 F 75 18 123/70 97 02/09/18 14:37 02/09/18 14:37 02/09/18 14:37 02/09/18 14:37 02/09/18 14:37 General appearance: Present: A&O X 3 - Cardiovascular Cardiovascular exam: Present: RRR, +S1, +S2. Absent: diastolic murmur, gallop, rubs, systolic murmur - GI/Abdominal GI/Abdominal exam: Present: normal bowel sounds, soft, tenderness (With voluntary guarding). Absent: distended, rebound, rigid - Skin Skin exam: Present: dry, intact Internal Medicine: Result - Impressions Impressions KUB X-Ray 02/09/18 09:00 IMPRESSION: Dilated small bowel loops are present along the mid abdomen, which could be related to ileus or obstruction. D/ / Harrison Cabrales MD / Harrison Cabrales MD Interpreting Provider: Harrison Cabrales MD Consult Discharge Plan - Plan Referrals: Agatha Stone MD [Primary Care Provider] -
[2018-02-09] MEDS ORDERED: Insulin LISPRO 300 UNITS/3 ML VIAL SQ SCH (21:00)
[2018-02-10 04:28] LABS: Basophils % 0.4 %; Eosinophils # 0.1 K/mcL (0.0-0.6); Eosinophils % 0.8 %; Hematocrit 42.8 % (37.5-50.1); Hemoglobin 14.9 g/dL (12.9-16.9); Immature Granulocytes % 0.7 % (0-4); Lymphocytes # 1.7 K/mcL (0.6-4.6); Lymphocytes % 17.2 %; Mean Corpuscular HGB Conc 34.8 g/dL (31.6-35.5); Mean Corpuscular Hemoglobin 30.8 pg (28.0-33.3); Mean Corpuscular Volume 88.6 fL (83.0-100.0); Mean Platelet Volume 8.9 fL (9.4-12.4); Monocytes % 10.6 %; Neutrophils # 6.8 K/mcL (1.6-8.9); Platelet Count 230 K/mcL (140-400); Red Blood Count 4.83 M/mcL (4.19-5.50); Red Cell Distribution Width 14.1 % (11.5-14.5); Segmented Neutrophils % 70.3 %
[2018-02-10 05:03] LABS: BUN/Creatinine Ratio 18 (6-26); Blood Urea Nitrogen 21 mg/dL (6-20); Calcium 8.1 mg/dL (8.6-10.3); Carbon Dioxide 25 mEq/L (23-29); Chloride 90 mEq/L (98-107); Glucose 320 mg/dL (70-105); Osmolality,Calculated 277 (280-300); Sodium 126 mEq/L (136-145); eGFR For African Americans > 60 (> 60); eGFR For Non-African Americans > 60 (> 60)
[2018-02-10] MEDS: Empagliflozin [Jardiance] 10 MG PO SCH (08:01)
[2018-02-10] MEDS: Aspirin 81 MG TAB.CHEW PO SCH (08:12)
[2018-02-10] MEDS: Fluticasone Propionate Nasal 50 MCG/SPRAY BOTTLE NS SCH (08:13)
[2018-02-10] MEDS: Insulin LISPRO 300 UNITS/3 ML VIAL SQ SCH ×3 (08:13→16:46)
[2018-02-10] MEDS: *HR* Rivaroxaban 10 MG TABLET PO SCH (08:13)
[2018-02-10 13:21] LABS: BUN/Creatinine Ratio 18 (6-26); Blood Urea Nitrogen 20 mg/dL (6-20); Calcium 8.4 mg/dL (8.6-10.3); Carbon Dioxide 24 mEq/L (23-29); Chloride 91 mEq/L (98-107); Glucose 382 mg/dL (70-105); Osmolality,Calculated 276 (280-300); Potassium 3.4 mEq/L (3.5-5.1); Sodium 124 mEq/L (136-145); eGFR For African Americans > 60 (> 60); eGFR For Non-African Americans > 60 (> 60)
[2018-02-10] MEDS ORDERED: 0.9 % Sodium Chloride 1,000 ML IVC ONE (14:10)
[2018-02-10 14:57] VITALS: BP 143/72
--- NOTE | 2018-02-10 15:38 | Discharge Summary ---
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 Mcdonnell is a 47 year old male with multiple medical comorbidities including hypertension, diabetes, morbid obesity, atrial fibrillation on anticoagulation who presented to the hospital due to abdominal pain nausea and vomiting. Initial CT of the abdomen showed findings suggestive of small bowel obstruction versus ileus. He was admitted to the medical service. He was treated conservatively. General surgery was consulted. His clinical picture was consistent with viral enteritis. He did not require surgical intervention. His symptoms have resolved and he was started on a clear liquid diet. He passed 3 bowel movements today. He reports passing gas. He had an episode of atrial fibrillation with rapid ventricular response which was reversed after restarting his home dose of diltiazem. He developed hyponatremia. With a sodium of 124 today likely hypovolemic hyponatremia secondary to dehydration. For this he will be given IV fluids and we will liberalize diet. He was advised to stop his Lasix for the next 2 days until his oral intake is back to baseline. He was advised to follow-up with his primary care physician within a week of discharge. He verbalized understanding and agreement with the plan. Discharge discussed with: patient, family - Time Spent with Patient Total time spent providing and/or coordinating discharge services: Less than 30 minutes - Discharge Medications Home Medications: Rivaroxaban [Xarelto] 20 mg PO DAILY 03/21/16 [History] metFORMIN [Glucophage] 500 mg PO BIDWM 03/21/16 [History] Fluticasone Propionate Nasal [Flonase] 50 mcg NS DAILY #0 03/22/16 [History] Glimepiride [Amaryl] 2 mg PO BID #0 03/22/16 [History] Lisinopril/Hydrochlorothiazide [Zestoretic 20-25 mg Tablet] 1 each PO DAILY #0 03/22/16 [History] Simvastatin [Zocor] 40 mg PO DAILY #0 03/22/16 [History] Aspirin 81 mg PO DAILY #90 tab.chew 03/23/16 [Rx] Nitroglycerin [Nitrostat] 0.4 mg SL AD PRN #30 tab 03/23/16 [Rx] Carvedilol 12.5 mg PO BID 30 Days tablet 06/07/16 [Rx] Potassium Chloride 20 meq PO DAILY #30 tab.er.prt 06/07/16 [Rx] dilTIAZem HCl [Diltiazem HCl] 90 mg PO TID 30 Days tablet 06/07/16 [Rx] Empagliflozin [Jardiance] 10 mg PO DAILY 12/16/16 [History] Omeprazole [PriLOSEC] 40 mg PO DAILY #30 cap 12/19/16 [Rx] Furosemide [Lasix] 60 mg PO BID #60 tablet 02/10/18 [Rx] Allergies/Adverse Reactions: 3 Allergy/AdvReac Type Severity Reaction Status Date / Time No Known Allergies Allergy Verified 12/16/16 14:36 Date of admission: 02/09/18 04:34 Primary care physician: Agatha Stone, - Constitutional Vitals: Temp Pulse Resp BP Pulse Ox 97.4 F L 86 16 143/72 96 02/10/18 14:56 02/10/18 14:56 02/10/18 14:56 02/10/18 14:56 02/10/18 14:56 General appearance: Present: A&O X 3 - Respiratory Respiratory exam: Present: CTAB. Absent: accessory muscle use, rales, rhonchi, wheezes - Cardiovascular Cardiovascular exam: Present: irregular rhythm, +S1, +S2. Absent: diastolic murmur, gallop, rubs, systolic murmur - GI/Abdominal GI/Abdominal exam: Present: normal bowel sounds, soft, no peritoneal signs. Absent: distended, tenderness - Patient Status Disposition: Home, Self-Care Condition: Good Functional capacity at discharge: independent ambulation Overall status at discharge: patient is progressing back to baseline - Discharge Instructions Follow Up With: Agatha Stone MD [Primary Care Provider] - Additional Instructions: Stop taking Lasix for the next 2 days and resume on 02/13/2018 if your diet is back to normal. Keep good oral hydration. You can add small amount of salt to your diet for the next 3 days then follow a sodium restricted diet. - Diet and Activity Activity: increase activity as tolerated Diet: advance to your usual diet, diabetic diet, low fat, low cholesterol
[2018-02-10 16:50] LABS: BUN/Creatinine Ratio 19 (6-26); Blood Urea Nitrogen 21 mg/dL (6-20); Calcium 8.4 mg/dL (8.6-10.3); Carbon Dioxide 21 mEq/L (23-29); Chloride 95 mEq/L (98-107); Glucose 351 mg/dL (70-105); Osmolality,Calculated 279 (280-300); Potassium 3.8 mEq/L (3.5-5.1); Sodium 126 mEq/L (136-145); eGFR For African Americans > 60 (> 60); eGFR For Non-African Americans > 60 (> 60)
--- NOTE | 2018-02-12 07:17 | Electrocardiograph Report ---
[address] [address] Test Date: 2018-02-09 Pat Name: Eloy Mcdonnell Department: 115 Room: 3A37 Gender: M Fabric Cutter: : 1970 Requested By: Al Trevizo Order Number: [id number] Reading MD: Silverio Borrero MD Measurements Intervals [place] Rate: 105 P: HI: 0 QRS: -42 QRSD: 116 T: 52 QT: 384 QTc: 445 Interpretive Statements ATRIAL FIBRILLATION WITH RAPID VENTRICULAR RESPONSE WITH ABERRANT CONDUCTION OR VENTRICULAR PREMATURE COMPLEXES MARKED LEFT AXIS DEVIATION Poor R wave progression Electronically Signed On 02-12-2018 7:16:05 EDT by Silverio Borrero MD
== END 2018-02-10 17:12 | disposition home or self-care (01) ==
LOC: 3ANU → SUATTDRO 04:34
PROVIDERS: ADMIT Internal Medicine Hematology & Oncology; ATTEND Internal Medicine

== ENCOUNTER 2018-12-21 18:50 | Inpatient (IN) ==
[2018-12-21] MEDS ORDERED: Ondansetron 4 MG/2 ML VIAL IVP ONE (19:28)
[2018-12-21] MEDS ORDERED: 0.9 % Sodium Chloride 1,000 ML ONE (19:40)
[2018-12-21] MEDS ORDERED: 0.9 % Sodium Chloride 1,000 ML IV SCH ×2 (19:45→20:00)
[2018-12-21 20:06] LABS: Hematocrit 32.7 % (37.5-50.1); Hemoglobin 11.6 g/dL (12.9-16.9); Mean Corpuscular HGB Conc 35.5 g/dL (31.6-35.5); Mean Corpuscular Hemoglobin 30.6 pg (28.0-33.3); Mean Corpuscular Volume 86.3 fL (83.0-100.0); Mean Platelet Volume 10.2 fL (9.4-12.4); Platelet Count 260 K/mcL (140-400); Red Blood Count 3.79 M/mcL (4.19-5.50); Red Cell Distribution Width 13.2 % (11.5-14.5)
[2018-12-21 20:55] LABS: Blood Urea Nitrogen > 130 mg/dL (6-20); Calcium 8.3 mg/dL (8.6-10.3); Carbon Dioxide 21 mEq/L (23-29); Chloride 81 mEq/L (98-107); Glucose 814 mg/dL (70-105); Potassium 4.4 mEq/L (3.5-5.1); Sodium 121 mEq/L (136-145); Troponin I < 0.03 ng/mL (< 0.04); eGFR For Non-African Americans 12 (> 60)
[2018-12-21 21:46] LABS: VBG HCO3 21 mEq/L (21-27); VBG PCO2 48 mmHg (41-51); VBG PH 7.25 pH Units (7.32-7.42); VBG PO2 58 mmHg (25-50)
--- NOTE | 2018-12-21 22:17 | Internal Med History&Physical ---
<Reji Howardbh - Last Filed: 12/22/18 06:35> Date of Encounter: 12/22/18 Time of Encounter: 22:30 Internal Medicine - H&P: HPI History of present illness: Mr. Mcdonnell is a 48 year old male with past medical history of CAD, diabetes, paroxsmal A. fib, stage 3 CKD, who initially presented to the ED , was found to have a glucose of 814 patient endorses that she takes metformin every day, Amaryl 2 mg , and Jiadiance PO daily for his glycemic control. Patient endorses being very regular in taking his antidiabetic medications. Of note he was recently in the ED for shortness of breath and was found to have bronchitis, was given no DuoNeb treatment and was sent home on the prednisone and albuterol inhaler. Patient endorses that he completed his course of prednisone on but did not did not give him much relief, therefore decided to come back to the ED. Initial workup in the ED showed that patient's was pH on VBG was slightly less than 7.3 (7.25), bicarbonate :21, with an anion gap of 19, beta hydroxybutyrate was not elevated (<0.03), and Trops were normal. He was breathing normally, satting at 94% room air with no evidence of Kussmaul respiration. Patient denied any nausea, vomiting belly pain, says of thirst or confusion. Owing to his elevated glucoses of and concerns for DKA/HHS patient was admitted to [facility] for further management. Past Med Surg Social Fam HX - Past Medical History Medical history: arthritis, atrial fibrillation, diabetes, GERD, hyperlipidemia, hypertension Psychiatric history: no psych history - Past Surgical History Surgical History: other - Social History Smoking Status: Never smoker Smokeless Tobacco Status: Yes (4-5 years) Alcohol use: none Drug use: none - Family History Mother Living Status: Hx Family Cardiac Disorders: Yes Hx Family Respiratory Disorders: No Hx Family Cancer: Yes (melanoma) Hx Family GI Disorders: No Hx Family Endocrine Disorder: Yes (Pt states he is diabetic. Unsure about family) Hx Family Neuromuscular Disorders: No Hx Family Neurologic Disorders: No Hx Family HEENT Disorders: No Hx Family Autoimmune Disorders: No Father Living Status: Hx Family Cardiac Disorders: Yes Hx Family Cancer: Yes Internal Medicine - H&P: Meds Rivaroxaban [Xarelto] 20 mg PO DAILY 03/21/16 [History] metFORMIN [Glucophage] 500 mg PO BIDWM 03/21/16 [History] Fluticasone Propionate Nasal [Flonase] 50 mcg NS DAILY #0 03/22/16 [History] Glimepiride [Amaryl] 2 mg PO BID #0 03/22/16 [History] Lisinopril/Hydrochlorothiazide [Zestoretic 20-25 mg Tablet] 1 each PO DAILY #0 03/22/16 [History] Simvastatin [Zocor] 40 mg PO DAILY #0 03/22/16 [History] Aspirin 81 mg PO DAILY #90 tab.chew 03/23/16 [Rx] Nitroglycerin [Nitrostat] 0.4 mg SL AD PRN #30 tab 03/23/16 [Rx] Carvedilol 12.5 mg PO BID 30 Days tablet 06/07/16 [Rx] Potassium Chloride 20 meq PO DAILY #30 tab.er.prt 06/07/16 [Rx] dilTIAZem HCl [Diltiazem HCl] 90 mg PO TID 30 Days tablet 06/07/16 [Rx] Empagliflozin [Jardiance] 10 mg PO DAILY 12/16/16 [History] Omeprazole [PriLOSEC] 40 mg PO DAILY #30 cap 12/19/16 [Rx] Furosemide [Lasix] 60 mg PO BID #60 tablet 02/10/18 [Rx] Albuterol Sulfate [Albuterol Inhaler] 2 puff IH Q6HR #1 inh 12/12/18 [Rx] predniSONE [PredniSONE] 60 mg PO DAILY #15 tablet 12/12/18 [Rx] Allergy/AdvReac Type Severity Reaction Status Date / Time No Known Allergies Allergy Verified 12/16/16 14:36 All Systems PM: A 10-system review of systems was performed and is negative for pertinent findings except as documented above in the HPI. - Constitutional Constitutional: no chills, no fever(s) - Cardiovascular Cardiovascular ROS IM: no chest pain - Respiratory Respiratory: no cough - Gastrointestinal Gastrointestinal: no abdominal pain - Genitourinary Genitourinary ROS male: no dysuria - Constitutional Vitals: Temp Pulse Resp BP Pulse Ox 97.4 F L 95 16 104/58 98 12/21/18 18:58 12/21/18 21:11 12/21/18 21:50 12/21/18 21:50 12/21/18 21:11 Exam: Gen.: Vitals noted. No acute distress. Alert, awake and oriented * [address], [address], and time, well developed, well-nourished resting comfortably in bed. Pleasant. HEENT: oropharynx clear, Normocephalic, atraumatic, MMM Neck: supple, no JVD, no lymphadenopathy, no carotid bruit. Cardiac: in Afib, no murmur, +S1/S2, No BLE edema, PMI non-displaced Pulmonary: mild biteral wheezing, no rales or rhonchi, equal chest expansion, unlabored breathing Abdomen: soft, nontender, BS noted, no guarding, mildly distended. No organomegaly, no pulsatile masses, Skin: warm and dry, no visible lesions. Feels warm, clammy, no rashes, no lesions, no erythema MSK: ROM not assessed. no joint swelling noted, gait not assessed while in bed. Non tender calf or clubbing, no cyanosis/clubbing/ or edema Neuro: A&O, moves all extremities, no focal deficits, sensation intact Psych: Appropriate mood and behavior, normal speech. Internal Med - H&P Results - Labs CBC & Chem 7: 12/21/18 19:57 12/22/18 03:38 Labs: Short CBC 12/21/18 Range/Units 19:57 WBC 16.9 H (4.3-11.1) K/mcL Hgb 11.6 L (12.9-16.9) g/dL Hct 32.7 L (37.5-50.1) % Plt Count 260 (140-400) K/mcL BMP 12/21/18 19:57 Sodium 121 L Potassium 4.4 Chloride 81 L Carbon Dioxide 21 L BUN > 130 H Creatinine 5.17 H Glucose 814 H* Calcium 8.3 L Cardiac Enzymes 12/21/18 Range/Units 19:57 Troponin I < 0.03 (< 0.04) ng/mL - ABG Interpretation ABG results: 12/21/18 21:44 VBG pH 7.25 L VBG pCO2 48 VBG pO2 58 H VBG HCO3 21 - Impressions ITS Impressions Chest X-Ray 12/21/18 19:45 IMPRESSION: No significant findings in the chest. D/ / Rehan Rudd MD / Rehan Rudd MD Interpreting Provider: Rehan Rudd MD - Assessment and plan (1) High anion gap metabolic acidosis Current Visit: Yes Status: Acute Assessment and plan: Likely secondary to lactic acidosis (2.4) , history of CKD and ALO (SCr: 5.17). Highly unlikely this is DKA because patient's bicarbonate is greater than 13, beta hydroxy butyric acid it is normal -And schedule ED with a anion gap of 19, VBG : pH: 7.25, pCO2: 48, HCO3: 21 -Currently on protocol to correct for fluid and electrolyte abnormalities -Continue to monitor (2) Atrial fibrillation Current Visit: No Status: Chronic Assessment and plan: Patient is a history of chronic atrial fibrillation. He is on no diltiazem 90 mg 3 times a day and 20 mg PO Xarelto for his anti-coagulation. However in context of is ALO and creatinine clearance being less than 50 we might have to go down on his Xarelto from 20-15 by mouth daily. Qualifiers: Atrial fibrillation type: paroxysmal Qualified Code(s): I48.0 - Paroxysmal atrial fibrillation (3) ALO (acute kidney injury) Current Visit: Yes Status: Acute Assessment and plan: -likely pre-renal in the setting of DKA/HHS. -Patient presented to the ED with a serum creatinine of 5.17 (baseline SCr: 1.2), GFR : 12 -Currently getting fluid resuscitated, continue to monitor (4) DM II (diabetes mellitus, type II), controlled Current Visit: Yes Status: Acute Assessment and plan: Patient has a history of DM 2 -Given his BMI it appears to me that patient is not following a god diabetic diet. -Oertli he is in the hospital with a glucose of 814. Which is likely secondary to noncompliance on his diabetic medications. -Currently on DKA protocol. Will transition to subcutaneous insulin once the glucose is less than 250 and anion gap is closed. Qualifiers: Qualified Code(s): E11.9 - Type 2 diabetes mellitus without complications (5) CAD (coronary artery disease) Current Visit: No Status: Chronic Assessment and plan: -Patient is a history of CAD. -Continue Home meds Coreg and Imdur Qualifiers: Coronary Disease-Associated Artery/Lesion type: [place] artery [place] vs. transplanted heart: [place] heart Associated angina: without angina Qualified Code(s): I25.10 - Atherosclerotic heart disease of [place] coronary artery without angina pectoris (6) DVT prophylaxis Current Visit: Yes Status: Acute Assessment and plan: Patient is on 15 PO Xarelto for A. fib. _ he endroses he took his meds today - will continue Xarelto (7) Hyperglycemic hyperosmolar nonketotic coma Current Visit: Yes Status: Acute Assessment and plan: -Patient presents to the ED with a glucose of 814. -Likely due to dehydration and noncompliance with medications. It could also be secondary to his recent bronchitis which he had about 10 days ago -Workup in the ED showed the patient's pH : 7.25, bicarbonate :19, gap : 19, patient's beta hydroxybutyric acid was not elevated. UA was negative for any pre sence of ketones. -Currently patient is breathing normally with no evidence of Kussmaul Respiration, No Belly Pain, Nausea or Vomiting. Patient showing no Neurolgical symptoms, patient has normal troponin values which rules out any evidence of myocardial ischemia. -Patient has a lactic acid of 2.4. -Currently on DKA protocol. Will transition to subcutaneous insulin now once the glucose levels are less than 250 and anion gap is closed. - Time Spent With Patient Total time spent is greater than 50% in coordination of care (as documented) at patient's floor/unit and/or counseling patient: <Anish Culver - Last Filed: 12/22/18 06:59> Date of Encounter: 12/21/18 Internal Medicine - H&P: HPI History of present illness: Mr. Mcdonnell is a 48 year old male All Systems PM: A 10-system review of systems was performed and is negative for pertinent findings except as documented above in the HPI. - Constitutional Vitals: Temp Pulse Resp BP Pulse Ox 97.6 F 84 20 95/44 97 12/22/18 03:48 12/22/18 03:48 12/22/18 03:48 12/22/18 03:48 12/22/18 03:48 Internal Med - H&P Results - Labs CBC & Chem 7: 12/21/18 19:57 12/22/18 03:38 Labs: Short CBC 12/21/18 Range/Units 19:57 WBC 16.9 H (4.3-11.1) K/mcL Hgb 11.6 L (12.9-16.9) g/dL Hct 32.7 L (37.5-50.1) % Plt Count 260 (140-400) K/mcL BMP 12/21/18 12/21/18 12/22/18 19:57 23:00 03:38 Sodium 121 L 121 L 132 L D Potassium 4.4 4.4 4.0 Chloride 81 L 87 L 96 L Carbon Dioxide 21 L 18 L 22 L BUN > 130 H > 130 H > 130 H Creatinine 5.17 H 4.85 H 4.66 H Glucose 814 H* 768 H* 259 H Calcium 8.3 L 8.1 L 8.6 Cardiac Enzymes 12/21/18 Range/Units 19:57 Troponin I < 0.03 (< 0.04) ng/mL Urine 12/21/18 Range/Units 22:20 Urine Color Yellow (Yellow) Urine Clarity Clear (Clear) Urine pH 6.0 (5.0-8.0) pH Units Ur Specific [place] 1.011 (1.010-1.025) Urine Protein Trace (Neg-Trace) mg/dL Urine Glucose (UA) >=1000 H (Normal) mg/dL - ABG Interpretation ABG results: 12/21/18 12/21/18 21:44 23:12 VBG pH 7.25 L 7.31 L VBG pCO2 48 39 L VBG pO2 58 H 130 H VBG HCO3 21 19 L - Impressions ITS Impressions Chest X-Ray 12/21/18 19:45 IMPRESSION: No significant findings in the chest. D/ / Rehan Rudd MD / Rehan Rudd MD Interpreting Provider: Rehan Rudd MD - Assessment and plan (1) Atrial fibrillation Current Visit: No Status: Chronic Qualifiers: Atrial fibrillation type: paroxysmal Qualified Code(s): I48.0 - Paroxysmal atrial fibrillation (2) CAD (coronary artery disease) Current Visit: No Status: Chronic Qualifiers: Coronary Disease-Associated Artery/Lesion type: [place] artery [place] vs. transplanted heart: [place] heart Associated angina: without angina Qualified Code(s): I25.10 - Atherosclerotic heart disease of [place] coronary artery without angina pectoris (3) ALO (acute kidney injury) Current Visit: Yes Status: Acute (4) DVT prophylaxis Current Visit: Yes Status: Acute (5) DM II (diabetes mellitus, type II), controlled Current Visit: Yes Status: Acute Qualifiers: Qualified Code(s): E11.9 - Type 2 diabetes mellitus without complications (6) High anion gap metabolic acidosis Current Visit: Yes Status: Acute (7) Hyperglycemic hyperosmolar nonketotic coma Current Visit: Yes Status: Acute - Time Spent With Patient Total time spent is greater than 50% in coordination of care (as documented) at patient's floor/unit and/or counseling patient: - Attending Attestation I performed a history and physical examination and the patient and discussed his management with the resident. I reviewed the resident's note and agree with [facility] assessment and plan. Patient is a 48-year-old male with past medical history of type 2 diabetes who presented to the ED with generalized malaise. I Have a Blood Glucose of over 800 and significant Acute Kidney Injury with a creatinine of over 5. Patient's baseline appears close to 1. Suspect this to be prerenal in the setting of patient's hyperglycemia due to questionable compliance with Patient's Medication. No Clear Evidence of DKA or HHS. We will start patient on insulin drip with aggressive fluid hydration. We will obtain renal ultrasound and nephrology consult in the morning.
[2018-12-21] MEDS ORDERED: D5% in 0.45% NACL w KCl 20 MEQ/1,000 ML MLS IVC PRN (22:26)
[2018-12-21] MEDS ORDERED: *HR* Dextrose 50 % in Water (Syg) 50 ML SYRINGE IVP PRN (22:26)
[2018-12-21] MEDS ORDERED: D5% in 0.45% NACL 1,000 ML IVC PRN (22:26)
[2018-12-21] MEDS ORDERED: Insulin LISPRO 300 UNITS/3 ML VIAL SQ PRN (22:26)
[2018-12-21] MEDS: 0.9 % Sodium Chloride 1,000 ML IVC SCH ×2 (22:30→23:35)
[2018-12-21] MEDS ORDERED: Insulin Human Regular 100 UNIT in 0.9 % Sodium Chloride 100 ML IVC SCH (22:30)
[2018-12-21 23:15] LABS: VBG HCO3 19 mEq/L (21-27); VBG PCO2 39 mmHg (41-51); VBG PH 7.31 pH Units (7.32-7.42); VBG PO2 130 mmHg (25-50)
[2018-12-21] MEDS: 0.9 % Sodium Chloride w KCl 20 MEQ/1,000 ML MLS IVC SCH (23:21)
[2018-12-21 23:41] LABS: Blood Urea Nitrogen > 130 mg/dL (6-20); Calcium 8.1 mg/dL (8.6-10.3); Carbon Dioxide 18 mEq/L (23-29); Chloride 87 mEq/L (98-107); Glucose 768 mg/dL (70-105); Potassium 4.4 mEq/L (3.5-5.1); Sodium 121 mEq/L (136-145); eGFR For Non-African Americans 13 (> 60)
[2018-12-22 02:12] LABS: Bilirubin,Urine Negative (Negative); Blood,Urine Negative (Negative); Clarity,Urine Clear (Clear); Color,Urine Yellow (Yellow); Glucose,Urine (UA) >=1000 mg/dL (Normal); Ketones,Urine Negative (Negative); Leukocyte Esterase,Urine Negative (Negative); Nitrite,Urine Negative (Negative); Protein,Urine Trace mg/dL (Neg-Trace); Specific Gravity,Urine 1.011 (1.010-1.025); Urobilinogen,Urine Normal (Normal)
[2018-12-22 02:16] LABS: Bacteria,Urine None Seen per hpf (None-Few); Hyaline Casts,Urine None Seen per lpf (None-Few); RBC,Urine 0-3 per hpf (0-3); Squamous Epithelial Cell,Urine Moderate per lpf (None-Few); WBC,Urine 0-3 per hpf (0-3)
[2018-12-22] MEDS: 0.9 % Sodium Chloride w KCl 20 MEQ/1,000 ML MLS IVC SCH ×5 (03:04→07:55)
[2018-12-22 04:17] LABS: Blood Urea Nitrogen > 130 mg/dL (6-20); Calcium 8.6 mg/dL (8.6-10.3); Carbon Dioxide 22 mEq/L (23-29); Chloride 96 mEq/L (98-107); Glucose 259 mg/dL (70-105); Magnesium 2.4 mg/dL (1.6-2.6); Sodium 132 mEq/L (136-145); eGFR For Non-African Americans 13 (> 60)
[2018-12-22 07:38] LABS: Blood Urea Nitrogen > 130 mg/dL (6-20); Calcium 8.5 mg/dL (8.6-10.3); Carbon Dioxide 20 mEq/L (23-29); Chloride 99 mEq/L (98-107); Glucose 195 mg/dL (70-105); Potassium 3.9 mEq/L (3.5-5.1); Sodium 133 mEq/L (136-145); eGFR For Non-African Americans 15 (> 60)
[2018-12-22] MEDS: 0.45 % Sodium Chloride w/KCl 20 MEQ/1,000 ML MLS IVC SCH ×5 (07:52→07:55)
[2018-12-22] MEDS: 0.9 % Sodium Chloride 1,000 ML IVC SCH ×3 (07:52→07:55)
[2018-12-22] MEDS ORDERED: 0.9 % Sodium Chloride 1,000 ML IVC SCH (08:30)
[2018-12-22] MEDS ORDERED: Insulin DETEMIR 100 UNIT/ML X5UNITS SQ ONE (08:30)
[2018-12-22] MEDS: *HR* Rivaroxaban 15 MG TABLET PO SCH (09:11)
--- NOTE | 2018-12-22 10:06 | Event Note ---
Date of Encounter: 12/22/18 Time of Encounter: 08:45 H&P reviewed. Patient with history of diabetes on metformin and CKD stage III, is admitted for acute on chronic kidney failure and high anion gap metabolic acidosis. Had elevated BG and pseudohyponatremia on presentation but HCO3 of 21 and -ve beta-hydroxybutyric acid. Suspect HHS rather than DKA with anion gap metabolic acidosis due to lactic acid and uremia ?metformin-induced. No signs and symptoms of post-obstructive nephropathy. Improving with IV fluid and will continue for now pending nephrology consult. Ultrasound retroperitoneal ordered. Transition to basal bolus regime of insulin.
[2018-12-22] MEDS ORDERED: Dextrose Gel 15 GM/37.5 ML TUBE PO PRN ×2 (10:07)
[2018-12-22] MEDS ORDERED: D5% in Water 1,000 ML IVC PRN (10:07)
--- NOTE | 2018-12-22 10:12 | Nephrology Consult Note ---
Date of Encounter: 12/22/18 Time of Encounter: 10:11 Assessment and Plan (1) ALO (acute kidney injury) Current Visit: Yes Status: Acute Nonoliguric, and trending better with insulin and IVF. Recommend avoiding the IMANI, both diuretics (thiazide and loop) and the metformin and jardiance. Since he is already improving with conservative measures, I recommend continuing IVF and correction of his HHS. If he does not improve sufficiently with IVF in the next 24-48hr, then the risks of dialysis would be warranted. (2) Metabolic acidosis Current Visit: Yes Status: Acute ddx includes ALO, hyperglycemia, metformin. Not severe so I do not recommend a Bicarb gtt. Recommend adding a short course of oral NaBicarb. Of note the 0.9% saline, which he has received may potentiate a dilutional acidosis as well. Discussed in detail with the Hospitalist. I will closely monitor for dialysis n eeds, but since he is already trending better, I recommend continuing IVF which has overall a lower risk profile than HD (and the risks of placing a temporary HD catheter placement) level of risks. (3) Glucosuria Current Visit: Yes Status: Acute Likely from the hyperglycemia (4) Hyperglycemia Current Visit: Yes Status: Acute Likely contributing to the glucosuria, and pseudohyponatremia (5) Acute hyponatremia Current Visit: No Status: Acute Likely pseudohyponatremia, at least in part, from the elevated hyperglycemia (6) Hyperlipidemia Current Visit: No Status: Chronic In general, I recommend Statin use in pt's with renal disease. Qualifiers: Hyperlipidemia type: unspecified Qualified Code(s): E78.5 - Hyperlipidemia, unspecified (7) Hypertension Current Visit: No Status: Chronic Hold IMANI d/t the ALO. Qualifiers: Hypertension type: essential hypertension Qualified Code(s): I10 - Essential (primary) hypertension History of Present Illness - Reason for Consult Consult date: 12/22/18 Acute Kidney Injury Requesting physician: Anish Culver - Chief Complaint Hyperglycemia and ALO and metabolic acidosis - History of Present Illness 48 y/o male who presented with hyperglycemia and findings of ALO. I was not notified of this consult overnight but happen to find this pt on my list this day (Sunday). The pt said that he's never seen another software consultant to his knowledge. I see that he's had prior AKIs. He denied taking OTC NSAIDs prior to this admission. He said that starting last to Sunday he was having increased shortness of breath without F/C or sputum, and he said that he was diagnosed with bronchitis. He denied having confusion, diarrhea or diminished appetite. He said that he was feeling "not right" last night but now reports feeling better. He said that he's never past renal stones or had prior gout. He denied having any recent LHC or IV contrast or hospitalization at another facility recently. He did not afffirm CP, constipation, rash or recent wounds. FHx: he denied having any 1st degree relatives with ESRD. Past Med Surg Social Fam HX - Past Medical History Medical history: arthritis, atrial fibrillation, diabetes, GERD, hyperlipidemia, hypertension Psychiatric history: no psych history - Past Surgical History Surgical History: other - Social History Smoking Status: Never smoker Smokeless Tobacco Status: Yes (4-5 years) Alcohol use: none Drug use: none - Family History Mother Living Status: Hx Family Cardiac Disorders: Yes Hx Family Respiratory Disorders: No Hx Family Cancer: Yes (melanoma) Hx Family GI Disorders: No Hx Family Endocrine Disorder: Yes (Pt states he is diabetic. Unsure about family) Hx Family Neuromuscular Disorders: No Hx Family Neurologic Disorders: No Hx Family HEENT Disorders: No Hx Family Autoimmune Disorders: No Father Living Status: Hx Family Cardiac Disorders: Yes Hx Family Cancer: Yes Medications and Allergies Rivaroxaban [Xarelto] 20 mg PO DAILY 03/21/16 [History] metFORMIN [Glucophage] 500 mg PO BIDWM 03/21/16 [History] Fluticasone Propionate Nasal [Flonase] 50 mcg NS DAILY #0 03/22/16 [History] Glimepiride [Amaryl] 2 mg PO BID #0 03/22/16 [History] Lisinopril/Hydrochlorothiazide [Zestoretic 20-25 mg Tablet] 1 each PO DAILY #0 0 03/22/16 [History] Simvastatin [Zocor] 40 mg PO DAILY #0 03/22/16 [History] Aspirin 81 mg PO DAILY #90 tab.chew 03/23/16 [Rx] Nitroglycerin [Nitrostat] 0.4 mg SL AD PRN #30 tab 03/23/16 [Rx] Carvedilol 12.5 mg PO BID 30 Days tablet 06/07/16 [Rx] Potassium Chloride 20 meq PO DAILY #30 tab.er.prt 06/07/16 [Rx] dilTIAZem HCl [Diltiazem HCl] 90 mg PO TID 30 Days tablet 06/07/16 [Rx] Empagliflozin [Jardiance] 10 mg PO DAILY 12/16/16 [History] Omeprazole [PriLOSEC] 40 mg PO DAILY #30 cap 12/19/16 [Rx] Furosemide [Lasix] 60 mg PO BID #60 tablet 02/10/18 [Rx] Albuterol Sulfate [Albuterol Inhaler] 2 puff IH Q6HR #1 inh 12/12/18 [Rx] predniSONE [PredniSONE] 60 mg PO DAILY #15 tablet 12/12/18 [Rx] Allergy/AdvReac Type Severity Reaction Status Date / Time No Known Allergies Allergy Verified 12/16/16 14:36 Review of Systems All Systems: reviewed and no additional remarkable complaints except as stated Exam - Vital Signs Vital signs: Initial Vital Signs Temp Pulse Resp BP Pulse Ox 97.4 F L 88 22 94/61 93 12/21/18 18:58 12/21/18 18:58 12/21/18 18:58 12/21/18 18:58 12/21/18 18:58 Vital Signs - Last 8 Hours Temp Pulse Resp BP Pulse Ox 12/22/18 07:31 98.0 F 78 18 88/58 12/22/18 03:48 97.6 F 84 20 95/44 97 Intake and Output 12/21/18 12/22/18 12/22/18 23:59 07:59 15:59 Intake Total 1400 / 1400 2551 / 2551 47 / 47 Output Total 2250 / 2250 500 / 500 Balance 1400 / 1400 301 / 301 -453 / -453 Intake: IV Fluids 1000 / 1000 2551 / 2551 47 / 47 0.9 % Sodium Chloride 1,000 ML 1000 / 1000 @ As Directed IV CONT MARYAN Rx#: [id number] 0.9 % Sodium Chloride 1,000 ML 1000 / 1000 @ 999 mls/hr IVC .Q1H1M MARYAN Rx# :[id number] KCl 20 mEq in 0.9% Sodium 1500 / 1500 Chloride 20 meq In 1,000 ml @ 500 mls/hr IVC .Q2H MRAYAN Rx#: [id number] HumuLIN R 100 UNIT In 0.9 % 51 / 51 47 / 47 Sodium Chloride 100 ML @ 0.1 UNIT/KG/HR 16.86 mls/hr IVC CONT MARYAN Rx#:[id number] Oral 400 / 400 Output: Urine 2250 / 2250 500 / 500 Other: Weight 161.8 kg 161.8 kg Blood Glucose* 768 179 155 Patient Weight 12/22/18 23:59 Weight 161.8 kg - General Appearance General appearance: well-developed (and appears discheveled. ), appears started age, obese EENT: ATNC, PERRL, mucous membranes moist Neck: supple Respiratory: clear Cardiology: edema (trace LE edema), regular rate, regular rhythm, normal S1, normal S2 Gastrointestinal: normoactive bowel sounds, no tenderness, no guarding, obese Integumentary: warm and dry Neurologic: no focal deficit, no asterixis, alert and oriented x3 Musculoskeletal: no cyanosis, no clubbing Psychiatric: mood/affect appropriate, cooperative Results - Lab Results 12/21/18 19:57 12/22/18 06:52 Most recent lab results Calcium 8.5 mg/dL (8.6-10.3) L 12/22/18 06:52 Phosphorus 8.0 mg/dL (2.7-4.5) H 12/22/18 03:38 Magnesium 2.4 mg/dL (1.6-2.6) 12/22/18 03:38 I reviewed the labs, vitals, med list and I reviewed prior prog notes and imaging. Consult Discharge Plan - Plan Referrals: NONE,PCP [Primary Care Provider] -
[2018-12-22 11:29] LABS: Adenovirus Not Detected (Not Detect); Bordetella Pertussis Not Detected (Not Detect); Chlamydophila pneumoniae Not Detected (Not Detect); Coronavirus 229E Not Detected (Not Detect); Coronavirus HKU1 Not Detected (Not Detect); Coronavirus NL63 Not Detected (Not Detect); Coronavirus OC43 Not Detected (Not Detect); Human Metapneumovirus Not Detected (Not Detect); Human Rhinovirus/Enterovirus Not Detected (Not Detect); Influenza A Subtype 2009 H1 Not Detected (Not Detect); Influenza A Untypeable Not Detected (Not Detect); Influenza B Not Detected (Not Detect); Mycoplasma pneumoniae Not Detected (Not Detect); Parainfluenza Virus 1 Not Detected (Not Detect); Parainfluenza Virus 2 Not Detected (Not Detect); Parainfluenza Virus 3 Not Detected (Not Detect); Parainfluenza Virus 4 Not Detected (Not Detect); Respiratory Syncytial Virus Not Detected (Not Detect)
[2018-12-22] MEDS: Insulin LISPRO 300 UNITS/3 ML VIAL SQ SCH ×2 (11:42→17:23)
[2018-12-22 15:55] LABS: Hepatitis B Surface Antibody < 3.10 mIU/mL
[2018-12-22 16:06] LABS: Hepatitis B Surface Antigen Nonreactive (Nonreactive)
[2018-12-22] MEDS ORDERED: Insulin LISPRO 300 UNITS/3 ML VIAL SQ SCH (21:00)
[2018-12-23 04:39] LABS: Basophils % 0.2 %; Eosinophils # 0.3 K/mcL (0.0-0.6); Eosinophils % 2.1 %; Hematocrit 32.9 % (37.5-50.1); Hemoglobin 11.3 g/dL (12.9-16.9); Immature Granulocytes % 0.4 % (0-4); Lymphocytes # 1.9 K/mcL (0.6-4.6); Lymphocytes % 15.4 %; Mean Corpuscular HGB Conc 34.3 g/dL (31.6-35.5); Mean Corpuscular Hemoglobin 30.5 pg (28.0-33.3); Mean Corpuscular Volume 88.9 fL (83.0-100.0); Mean Platelet Volume 9.8 fL (9.4-12.4); Monocytes # 0.8 K/mcL (0.0-1.3); Monocytes % 6.2 %; Neutrophils # 9.3 K/mcL (1.6-8.9); Platelet Count 224 K/mcL (140-400); Red Cell Distribution Width 13.7 % (11.5-14.5); Segmented Neutrophils % 75.7 %
[2018-12-23 04:58] LABS: Calcium 8.8 mg/dL (8.6-10.3); Phosphorous 6.5 mg/dL (2.7-4.5); Potassium 4.6 mEq/L (3.5-5.1); Uric Acid 12.9 mg/dL (2.3-7.6)
[2018-12-23] MEDS: *HR* Rivaroxaban 15 MG TABLET PO SCH (07:44)
[2018-12-23] MEDS: Insulin LISPRO 300 UNITS/3 ML VIAL SQ SCH ×3 (07:45→17:28)
[2018-12-23 08:26] LABS: Estimated Average Glucose 364 mg/dl; Hemoglobin A1C 14.3 %
--- NOTE | 2018-12-23 10:46 | Emergency Department Note ---
Addendum entered and electronically signed by Joshua Moncada 12/23/18 20:16: For further clarification: Original chart was completed in real time with attending physician Dr. Joseph. Note was completed by resident physician Dr. Joshua Kern and attested to by Dr. Joseph on the evening of 12/21/2017. After the end of shift, ED resident physician was contacted by resident physician from internal medicine and told that there was no note appearing in patient's chart from the ED. Upon further investigation original note completed by the resident physician and Dr. Joseph was no longer able to be found for reasons unknown. Second note was placed on the afternoon of December 23 and re-signed by resident physician and attested to by Dr. Joseph. Addendum entered and electronically signed by Joshua Moncada 12/23/18 20:04: As per noted below patient admits to diarrhea, denies headache, vision change, tinnitus, new neck or back pain, chest pain, abdominal pain/nausea/vomiting, paresthesias in his extremities or difficulty with ambulation. Physical exam: Constitutional: Mild respiratory distress,, [id number], patient engaged to conversation, speech is fluid, answers questions appropriately Neuro: GCS 15, no overt focal neurological deficits Head: Atraumatic, normocephalic Eyes: Pupils equal, round and reactive to light, external ocular muscles intact, no scleral icterus Neck: Trachea midline without deviation. No overt thyromegaly noted Chest: Symmetric chest wall rise Heart: Cardiac rhythm and rate are regular with S1 and S2 auscultated, no S3 or S4 appreciated, no murmurs, rubs, or clicks. Lungs: Bilateral wheezes noted in the upper lung velazquez. There is no stridor or rhonchi appreciated. Abdomen: Abdomen is obese, soft to palpation, normal bowel sounds. Non- distended, non-rigid, no tenderness or guarding to palpation, no rebound Extremities: Radial pulses intact and strong Psychiatric exam: Patient displays a normal affect and mood for the environment. Integumentary: warm, dry, intact, normal color. No rash, cyanosis, diaphoresis, erythema, or pallor Course and MDM: Patient found to have elevated blood glucose at 814. Anion gap is present. Insulin drip and fluids initiated while in ED. Patient will be admitted to hospitalist medicine service for further evaluation and management of diabetic ketoacidosis. Original Note: Disposition Clinical Impression: Acute hyperglycemia Renal failure, acute Qualifiers: Acute renal failure type: unspecified Qualified Code(s): N17.9 - Acute kidney failure, unspecified Hypotension Qualifiers: Hypotension type: unspecified hypotension type Qualified Code(s): I95.9 - Hypotension, unspecified Disposition: Admitted As Inpatient Condition: Good General Adult HPI - General Chief complaint: ED Shortness of Breath/Dyspnea Stated complaint: haider Time Seen by Provider: 12/21/18 18:57 Source: patient Limitations: no limitations Nursing Notes Reviewed: Yes Vital Signs Reviewed: Yes - History of Present Illness HPI Narrative: Patient is a 48-year-old male presenting to [facility] ED for a 2-week history of gradually progressive and worsening shortness of breath. Patient states that he was seen at this facility on December 12 due to a 3 day history of dyspnea ounces diagnosed with bronchitis at that time and discharged home with 5 days of prednisone as well as an albuterol inhaler. Patient states that he finished his course of prednisone but despite this therapy has continued to have increasing dyspnea. Upon initial examination patient is sitting upright in hospital bed he is awake, alert, engaged conversation answering questions appropriately. He is noncyanotic, nondiaphoretic, in no acute distress, and there are no overt focal neurological deficits appreciated. In addition to the above-mentioned symptoms patient admits to diarrhea, denies headache, vision change, tinnitus, new neck or back pain, chest pain, abdominal pain/nausea/vomiting, Onset (ago): week(s) Pain Scale: 0 - Related Data Home Medications Medication Instructions Recorded Confirmed RX: Rivaroxaban [Xarelto] 20 mg PO DAILY 03/21/16 12/23/18 RX: metFORMIN [Glucophage] 500 mg PO BIDWM 03/21/16 12/23/18 RX: Fluticasone Propionate Nasal 50 mcg NS DAILY #0 03/22/16 12/23/18 [Flonase] RX: Glimepiride [Amaryl] 2 mg PO BID #0 03/22/16 12/16/16 RX: Lisinopril/Hydrochlorothiazide 1 each PO DAILY #0 03/22/16 12/23/18 [Zestoretic 20-25 mg Tablet] Atorvastatin [Lipitor] 40 mg PO HS 12/23/18 12/23/18 Dulaglutide [Trulicity] 1.5 mg SQ QWEEK 12/23/18 12/23/18 Furosemide [Lasix] 80 mg PO BID 12/23/18 12/23/18 Insulin Glargine,Hum.rec.anlog 20 unit SQ HS 12/23/18 12/23/18 [Lantus Solostar] Levocetirizine Dihydrochloride 5 mg PO HS 12/23/18 12/23/18 [Allergy Relief] Pioglitazone [Actos] 15 mg PO DAILY 12/23/18 12/23/18 Potassium Chloride [K-Tab ER] 20 meq PO DAILY 12/23/18 12/23/18 Previous Rx's Medication Instructions Recorded RX: Aspirin 81 mg PO DAILY #90 tab.chew 03/23/16 RX: Nitroglycerin [Nitrostat] 0.4 mg SL AD PRN #30 tab 03/23/16 RX: Carvedilol 12.5 mg PO BID 30 Days tablet 06/07/16 RX: dilTIAZem HCl [Diltiazem HCl] 90 mg PO TID 30 Days tablet 06/07/16 RX: Omeprazole [PriLOSEC] 40 mg PO DAILY #30 cap 12/19/16 Albuterol Sulfate [Albuterol 2 puff IH Q6HR #1 inh 12/12/18 Inhaler] Allergies Allergy/AdvReac Type Severity Reaction Status Date / Time No Known Allergies Allergy Verified 12/16/16 14:36 Past Medical History - Past Medical History Medical history: Reports: arthritis, atrial fibrillation, diabetes, GERD, hyperlipidemia, hypertension Surgical history: Reports: other Psychiatric history: Reports: no psych history - Social History Smoking Status: Never smoker Smokeless Tobacco Status: Yes (4-5 years) Alcohol use: Reports: none Drug use: Reports: none Physical Exam - General Limitations: no limitations General appearance: alert, in no apparent distress Course Vital Signs Temperature 97.4 F L 12/21/18 18:58 Pulse Rate 88 12/21/18 18:58 Respiratory Rate 22 12/21/18 18:58 Blood Pressure 94/61 12/21/18 18:58 O2 Sat by Pulse Oximetry 93 12/21/18 18:58 Temperature 98.0 F 12/23/18 16:36 Pulse Rate 108 12/23/18 16:36 Respiratory Rate 17 12/23/18 16:36 Blood Pressure 112/54 12/23/18 16:36 O2 Sat by Pulse Oximetry 98 12/23/18 16:36 Oxygen Delivery Oxygen Delivery Nasal Cannula Medical Decision Making - Lab Data Result diagrams: 12/23/18 04:14 12/23/18 04:14 Lab Results 12/21/18 12/21/18 12/21/18 Range/Units 19:57 19:57 21:34 WBC 16.9 H (4.3-11.1) K/mcL RBC 3.79 L (4.19-5.50) M/mcL Hgb 11.6 L (12.9-16.9) g/dL Hct 32.7 L (37.5-50.1) % MCV 86.3 (83.0-100.0) fL MCH 30.6 (28.0-33.3) pg MCHC 35.5 (31.6-35.5) g/dL RDW 13.2 (11.5-14.5) % Plt Count 260 (140-400) K/mcL MPV 10.2 (9.4-12.4) fL VBG pH (7.32-7.42) pH Units VBG pCO2 (41-51) mmHg VBG pO2 (25-50) mmHg VBG HCO3 (21-27) mEq/L Sodium 121 L (136-145) mEq/L Potassium 4.4 (3.5-5.1) mEq/L Chloride 81 L (98-107) mEq/L Carbon Dioxide 21 L (23-29) mEq/L BUN > 130 H (6-20) mg/dL Creatinine 5.17 H (0.70-1.30) mg/dL Est GFR ( Amer) 14 L (> 60) Est GFR (Non-Af Amer) 12 L (> 60) BUN/Creatinine Ratio TNP Glucose 814 H* (70-105) mg/dL POC Glucose (70-99) mg/dL Calculated Osmolality TNP Lactic Acid (0.5-2.2) mmol/L Calcium 8.3 L (8.6-10.3) mg/dL Phosphorus (2.7-4.5) mg/dL Magnesium (1.6-2.6) mg/dL Troponin I < 0.03 (< 0.04) ng/mL Beta-Hydroxybutyric Acd 0.27 (0.02-0.27) mmol/L Urine Color (Yellow) Urine Clarity (Clear) Urine pH (5.0-8.0) pH Units Ur Specific [place] (1.010-1.025) Urine Protein (Neg-Trace) mg/dL Urine Glucose (UA) (Normal) mg/dL Urine Ketones (Negative) mg/dL Urine Blood (Negative) Urine Nitrite (Negative) Urine Bilirubin (Negative) Urine Urobilinogen (Normal) mg/dL Ur Leukocyte Esterase (Negative) Urine Microscopic RBC (0-3) per hpf Urine Microscopic WBC (0-3) per hpf Ur Squamous Epith Cells (None-Few) per lpf Urine Bacteria (None-Few) per hpf Hyaline Casts (None-Few) per lpf Ur Culture Indicated? 12/21/18 12/21/18 12/21/18 Range/Units 21:44 21:54 21:55 WBC (4.3-11.1) K/mcL RBC (4.19-5.50) M/mcL Hgb (12.9-16.9) g/dL Hct (37.5-50.1) % MCV (83.0-100.0) fL MCH (28.0-33.3) pg MCHC (31.6-35.5) g/dL RDW (11.5-14.5) % Plt Count (140-400) K/mcL MPV (9.4-12.4) fL VBG pH 7.25 L (7.32-7.42) pH Units VBG pCO2 48 (41-51) mmHg VBG pO2 58 H (25-50) mmHg VBG HCO3 21 (21-27) mEq/L Sodium (136-145) mEq/L Potassium (3.5-5.1) mEq/L Chloride (98-107) mEq/L Carbon Dioxide (23-29) mEq/L BUN (6-20) mg/dL Creatinine (0.70-1.30) mg/dL Est GFR ( Amer) (> 60) Est GFR (Non-Af Amer) (> 60) BUN/Creatinine Ratio Glucose (70-105) mg/dL POC Glucose > 600 H* > 600 H* (70-99) mg/dL Calculated Osmolality Lactic Acid (0.5-2.2) mmol/L Calcium (8.6-10.3) mg/dL Phosphorus (2.7-4.5) mg/dL Magnesium (1.6-2.6) mg/dL Troponin I (< 0.04) ng/mL Beta-Hydroxybutyric Acd (0.02-0.27) mmol/L Urine Color (Yellow) Urine Clarity (Clear) Urine pH (5.0-8.0) pH Units Ur Specific [place] (1.010-1.025) Urine Protein (Neg-Trace) mg/dL Urine Glucose (UA) (Normal) mg/dL Urine Ketones (Negative) mg/dL Urine Blood (Negative) Urine Nitrite (Negative) Urine Bilirubin (Negative) Urine Urobilinogen (Normal) mg/dL Ur Leukocyte Esterase (Negative) Urine Microscopic RBC (0-3) per hpf Urine Microscopic WBC (0-3) per hpf Ur Squamous Epith Cells (None-Few) per lpf Urine Bacteria (None-Few) per hpf Hyaline Casts (None-Few) per lpf Ur Culture Indicated? 12/21/18 12/21/18 12/21/18 Range/Units 22:08 22:10 22:20 WBC (4.3-11.1) K/mcL RBC (4.19-5.50) M/mcL Hgb (12.9-16.9) g/dL Hct (37.5-50.1) % MCV (83.0-100.0) fL MCH (28.0-33.3) pg MCHC (31.6-35.5) g/dL RDW (11.5-14.5) % Plt Count (140-400) K/mcL MPV (9.4-12.4) fL VBG pH (7.32-7.42) pH Units VBG pCO2 (41-51) mmHg VBG pO2 (25-50) mmHg VBG HCO3 (21-27) mEq/L Sodium (136-145) mEq/L Potassium (3.5-5.1) mEq/L Chloride (98-107) mEq/L Carbon Dioxide (23-29) mEq/L BUN (6-20) mg/dL Creatinine (0.70-1.30) mg/dL Est GFR ( Amer) (> 60) Est GFR (Non-Af Amer) (> 60) BUN/Creatinine Ratio Glucose (70-105) mg/dL POC Glucose > 600 H* > 600 H* (70-99) mg/dL Calculated Osmolality Lactic Acid (0.5-2.2) mmol/L Calcium (8.6-10.3) mg/dL Phosphorus (2.7-4.5) mg/dL Magnesium (1.6-2.6) mg/dL Troponin I (< 0.04) ng/mL Beta-Hydroxybutyric Acd (0.02-0.27) mmol/L Urine Color Yellow (Yellow) Urine Clarity Clear (Clear) Urine pH 6.0 (5.0-8.0) pH Units Ur Specific [place] 1.011 (1.010-1.025) Urine Protein Trace (Neg-Trace) mg/dL Urine Glucose (UA) >=1000 H (Normal) mg/dL Urine Ketones Negative (Negative) mg/dL Urine Blood Negative (Negative) Urine Nitrite Negative (Negative) Urine Bilirubin Negative (Negative) Urine Urobilinogen Normal (Normal) mg/dL Ur Leukocyte Esterase Negative (Negative) Urine Microscopic RBC 0-3 (0-3) per hpf Urine Microscopic WBC 0-3 (0-3) per hpf Ur Squamous Epith Cells Moderate H (None-Few) per lpf Urine Bacteria None Seen (None-Few) per hpf Hyaline Casts None Seen (None-Few) per lpf Ur Culture Indicated? Cancelled 12/21/18 12/21/18 12/21/18 Range/Units 23:00 23:00 23:12 WBC (4.3-11.1) K/mcL RBC (4.19-5.50) M/mcL Hgb (12.9-16.9) g/dL Hct (37.5-50.1) % MCV (83.0-100.0) fL MCH (28.0-33.3) pg MCHC (31.6-35.5) g/dL RDW (11.5-14.5) % Plt Count (140-400) K/mcL MPV (9.4-12.4) fL VBG pH 7.31 L (7.32-7.42) pH Units VBG pCO2 39 L (41-51) mmHg VBG pO2 130 H (25-50) mmHg VBG HCO3 19 L (21-27) mEq/L Sodium 121 L (136-145) mEq/L Potassium 4.4 (3.5-5.1) mEq/L Chloride 87 L (98-107) mEq/L Carbon Dioxide 18 L (23-29) mEq/L BUN > 130 H (6-20) mg/dL Creatinine 4.85 H (0.70-1.30) mg/dL Est GFR ( Amer) 16 L (> 60) Est GFR (Non-Af Amer) 13 L (> 60) BUN/Creatinine Ratio TNP Glucose 768 H* (70-105) mg/dL POC Glucose (70-99) mg/dL Calculated Osmolality TNP Lactic Acid 2.4 H (0.5-2.2) mmol/L Calcium 8.1 L (8.6-10.3) mg/dL Phosphorus (2.7-4.5) mg/dL Magnesium (1.6-2.6) mg/dL Troponin I (< 0.04) ng/mL Beta-Hydroxybutyric Acd (0.02-0.27) mmol/L Urine Color (Yellow) Urine Clarity (Clear) Urine pH (5.0-8.0) pH Units Ur Specific [place] (1.010-1.025) Urine Protein (Neg-Trace) mg/dL Urine Glucose (UA) (Normal) mg/dL Urine Ketones (Negative) mg/dL Urine Blood (Negative) Urine Nitrite (Negative) Urine Bilirubin (Negative) Urine Urobilinogen (Normal) mg/dL Ur Leukocyte Esterase (Negative) Urine Microscopic RBC (0-3) per hpf Urine Microscopic WBC (0-3) per hpf Ur Squamous Epith Cells (None-Few) per lpf Urine Bacteria (None-Few) per hpf Hyaline Casts (None-Few) per lpf Ur Culture Indicated? 12/22/18 12/22/18 12/22/18 Range/Units 00:30 00:31 01:55 WBC (4.3-11.1) K/mcL RBC (4.19-5.50) M/mcL Hgb (12.9-16.9) g/dL Hct (37.5-50.1) % MCV (83.0-100.0) fL MCH (28.0-33.3) pg MCHC (31.6-35.5) g/dL RDW (11.5-14.5) % Plt Count (140-400) K/mcL MPV (9.4-12.4) fL VBG pH (7.32-7.42) pH Units VBG pCO2 (41-51) mmHg VBG pO2 (25-50) mmHg VBG HCO3 (21-27) mEq/L Sodium (136-145) mEq/L Potassium (3.5-5.1) mEq/L Chloride (98-107) mEq/L Carbon Dioxide (23-29) mEq/L BUN (6-20) mg/dL Creatinine (0.70-1.30) mg/dL Est GFR ( Amer) (> 60) Est GFR (Non-Af Amer) (> 60) BUN/Creatinine Ratio Glucose (70-105) mg/dL POC Glucose 565 H* 584 H* 420 H* (70-99) mg/dL Calculated Osmolality Lactic Acid (0.5-2.2) mmol/L Calcium (8.6-10.3) mg/dL Phosphorus (2.7-4.5) mg/dL Magnesium (1.6-2.6) mg/dL Troponin I (< 0.04) ng/mL Beta-Hydroxybutyric Acd (0.02-0.27) mmol/L Urine Color (Yellow) Urine Clarity (Clear) Urine pH (5.0-8.0) pH Units Ur Specific [place] (1.010-1.025) Urine Protein (Neg-Trace) mg/dL Urine Glucose (UA) (Normal) mg/dL Urine Ketones (Negative) mg/dL Urine Blood (Negative) Urine Nitrite (Negative) Urine Bilirubin (Negative) Urine Urobilinogen (Normal) mg/dL Ur Leukocyte Esterase (Negative) Urine Microscopic RBC (0-3) per hpf Urine Microscopic WBC (0-3) per hpf Ur Squamous Epith Cells (None-Few) per lpf Urine Bacteria (None-Few) per hpf Hyaline Casts (None-Few) per lpf Ur Culture Indicated? 12/22/18 12/22/18 12/22/18 Range/Units 01:56 02:56 03:38 WBC (4.3-11.1) K/mcL RBC (4.19-5.50) M/mcL Hgb (12.9-16.9) g/dL Hct (37.5-50.1) % MCV (83.0-100.0) fL MCH (28.0-33.3) pg MCHC (31.6-35.5) g/dL RDW (11.5-14.5) % Plt Count (140-400) K/mcL MPV (9.4-12.4) fL VBG pH (7.32-7.42) pH Units VBG pCO2 (41-51) mmHg VBG pO2 (25-50) mmHg VBG HCO3 (21-27) mEq/L Sodium 132 L D (136-145) mEq/L Potassium 4.0 (3.5-5.1) mEq/L Chloride 96 L (98-107) mEq/L Carbon Dioxide 22 L (23-29) mEq/L BUN > 130 H (6-20) mg/dL Creatinine 4.66 H (0.70-1.30) mg/dL Est GFR ( Amer) 16 L (> 60) Est GFR (Non-Af Amer) 13 L (> 60) BUN/Creatinine Ratio TNP Glucose 259 H (70-105) mg/dL POC Glucose 393 H 276 H (70-99) mg/dL Calculated Osmolality TNP Lactic Acid (0.5-2.2) mmol/L Calcium 8.6 (8.6-10.3) mg/dL Phosphorus 8.0 H (2.7-4.5) mg/dL Magnesium 2.4 (1.6-2.6) mg/dL Troponin I (< 0.04) ng/mL Beta-Hydroxybutyric Acd (0.02-0.27) mmol/L Urine Color (Yellow) Urine Clarity (Clear) Urine pH (5.0-8.0) pH Units Ur Specific [place] (1.010-1.025) Urine Protein (Neg-Trace) mg/dL Urine Glucose (UA) (Normal) mg/dL Urine Ketones (Negative) mg/dL Urine Blood (Negative) Urine Nitrite (Negative) Urine Bilirubin (Negative) Urine Urobilinogen (Normal) mg/dL Ur Leukocyte Esterase (Negative) Urine Microscopic RBC (0-3) per hpf Urine Microscopic WBC (0-3) per hpf Ur Squamous Epith Cells (None-Few) per lpf Urine Bacteria (None-Few) per hpf Hyaline Casts (None-Few) per lpf Ur Culture Indicated? 12/22/18 12/22/18 12/22/18 Range/Units 03:38 03:41 04:14 WBC (4.3-11.1) K/mcL RBC (4.19-5.50) M/mcL Hgb (12.9-16.9) g/dL Hct (37.5-50.1) % MCV (83.0-100.0) fL MCH (28.0-33.3) pg MCHC (31.6-35.5) g/dL RDW (11.5-14.5) % Plt Count (140-400) K/mcL MPV (9.4-12.4) fL VBG pH (7.32-7.42) pH Units VBG pCO2 (41-51) mmHg VBG pO2 (25-50) mmHg VBG HCO3 (21-27) mEq/L Sodium (136-145) mEq/L Potassium (3.5-5.1) mEq/L Chloride (98-107) mEq/L Carbon Dioxide (23-29) mEq/L BUN (6-20) mg/dL Creatinine (0.70-1.30) mg/dL Est GFR ( Amer) (> 60) Est GFR (Non-Af Amer) (> 60) BUN/Creatinine Ratio Glucose (70-105) mg/dL POC Glucose 237 H 223 H (70-99) mg/dL Calculated Osmolality Lactic Acid 1.1 (0.5-2.2) mmol/L Calcium (8.6-10.3) mg/dL Phosphorus (2.7-4.5) mg/dL Magnesium (1.6-2.6) mg/dL Troponin I (< 0.04) ng/mL Beta-Hydroxybutyric Acd (0.02-0.27) mmol/L Urine Color (Yellow) Urine Clarity (Clear) Urine pH (5.0-8.0) pH Units Ur Specific [place] (1.010-1.025) Urine Protein (Neg-Trace) mg/dL Urine Glucose (UA) (Normal) mg/dL Urine Ketones (Negative) mg/dL Urine Blood (Negative) Urine Nitrite (Negative) Urine Bilirubin (Negative) Urine Urobilinogen (Normal) mg/dL Ur Leukocyte Esterase (Negative) Urine Microscopic RBC (0-3) per hpf Urine Microscopic WBC (0-3) per hpf Ur Squamous Epith Cells (None-Few) per lpf Urine Bacteria (None-Few) per hpf Hyaline Casts (None-Few) per lpf Ur Culture Indicated? 12/22/18 12/22/18 12/22/18 Range/Units 05:03 05:57 06:52 WBC (4.3-11.1) K/mcL RBC (4.19-5.50) M/mcL Hgb (12.9-16.9) g/dL Hct (37.5-50.1) % MCV (83.0-100.0) fL MCH (28.0-33.3) pg MCHC (31.6-35.5) g/dL RDW (11.5-14.5) % Plt Count (140-400) K/mcL MPV (9.4-12.4) fL VBG pH (7.32-7.42) pH Units VBG pCO2 (41-51) mmHg VBG pO2 (25-50) mmHg VBG HCO3 (21-27) mEq/L Sodium 133 L (136-145) mEq/L Potassium 3.9 (3.5-5.1) mEq/L Chloride 99 (98-107) mEq/L Carbon Dioxide 20 L (23-29) mEq/L BUN > 130 H (6-20) mg/dL Creatinine 4.18 H (0.70-1.30) mg/dL Est GFR ( Amer) 18 L (> 60) Est GFR (Non-Af Amer) 15 L (> 60) BUN/Creatinine Ratio TNP Glucose 195 H (70-105) mg/dL POC Glucose 206 H 212 H (70-99) mg/dL Calculated Osmolality TNP Lactic Acid (0.5-2.2) mmol/L Calcium 8.5 L (8.6-10.3) mg/dL Phosphorus (2.7-4.5) mg/dL Magnesium (1.6-2.6) mg/dL Troponin I (< 0.04) ng/mL Beta-Hydroxybutyric Acd (0.02-0.27) mmol/L Urine Color (Yellow) Urine Clarity (Clear) Urine pH (5.0-8.0) pH Units Ur Specific [place] (1.010-1.025) Urine Protein (Neg-Trace) mg/dL Urine Glucose (UA) (Normal) mg/dL Urine Ketones (Negative) mg/dL Urine Blood (Negative) Urine Nitrite (Negative) Urine Bilirubin (Negative) Urine Urobilinogen (Normal) mg/dL Ur Leukocyte Esterase (Negative) Urine Microscopic RBC (0-3) per hpf Urine Microscopic WBC (0-3) per hpf Ur Squamous Epith Cells (None-Few) per lpf Urine Bacteria (None-Few) per hpf Hyaline Casts (None-Few) per lpf Ur Culture Indicated? 12/22/18 12/22/18 12/22/18 Range/Units 07:07 08:01 09:01 WBC (4.3-11.1) K/mcL RBC (4.19-5.50) M/mcL Hgb (12.9-16.9) g/dL Hct (37.5-50.1) % MCV (83.0-100.0) fL MCH (28.0-33.3) pg MCHC (31.6-35.5) g/dL RDW (11.5-14.5) % Plt Count (140-400) K/mcL MPV (9.4-12.4) fL VBG pH (7.32-7.42) pH Units VBG pCO2 (41-51) mmHg VBG pO2 (25-50) mmHg VBG HCO3 (21-27) mEq/L Sodium (136-145) mEq/L Potassium (3.5-5.1) mEq/L Chloride (98-107) mEq/L Carbon Dioxide (23-29) mEq/L BUN (6-20) mg/dL Creatinine (0.70-1.30) mg/dL Est GFR ( Amer) (> 60) Est GFR (Non-Af Amer) (> 60) BUN/Creatinine Ratio Glucose (70-105) mg/dL POC Glucose 179 H 168 H 155 H (70-99) mg/dL Calculated Osmolality Lactic Acid (0.5-2.2) mmol/L Calcium (8.6-10.3) mg/dL Phosphorus (2.7-4.5) mg/dL Magnesium (1.6-2.6) mg/dL Troponin I (< 0.04) ng/mL Beta-Hydroxybutyric Acd (0.02-0.27) mmol/L Urine Color (Yellow) Urine Clarity (Clear) Urine pH (5.0-8.0) pH Units Ur Specific [place] (1.010-1.025) Urine Protein (Neg-Trace) mg/dL Urine Glucose (UA) (Normal) mg/dL Urine Ketones (Negative) mg/dL Urine Blood (Negative) Urine Nitrite (Negative) Urine Bilirubin (Negative) Urine Urobilinogen (Normal) mg/dL Ur Leukocyte Esterase (Negative) Urine Microscopic RBC (0-3) per hpf Urine Microscopic WBC (0-3) per hpf Ur Squamous Epith Cells (None-Few) per lpf Urine Bacteria (None-Few) per hpf Hyaline Casts (None-Few) per lpf Ur Culture Indicated? Critical Care Time Critical Care Time: Yes Total Critical Care Time: 39 Attestation: Acute Hyperglycemia requiring an insulin drip. Acute dehydration and renal failure. Requiring fluid resuscitation. Attestation Statement - Attestation Attestation: Dr. Joseph note: This chart is being completed the second time. This chart was completed by myself and the resident Dr. Joshua Kern more than 2 days ago, but there was an unknown area in the [facility] electronic system, and for some unknown reason the chart was noted to be absent yesterday. This was called to our attention from the physician to the ICU and when we searched the chart the patient's chart in visit history in the ER was for some reason not present. Patient is a 48-year-old male with the chief complaint of weakness and cough. Patient had vomiting and diarrhea that began in the ER. He was not diaphoretic, tachypneic, or hypoxic. He was hypotensive. They are to be hyperglycemic and likely noncompliant with his diabetic medications as his blood sugars over 800, and he was in acute renal failure. Fluids were given. Insulin drip and fluid resuscitation started in the ER. Patient was admitted to the hospitalist and improved in stabilized condition. Patient was not significantly acidotic. There is no change in mental status. No neurological signs or symptoms. Critical care time noted. Please see the resident's chart, Dr Andrea Kern for complete documentation. I agree with the patient's treatment and disposition
[2018-12-23] MEDS ORDERED: Fluticasone Propionate Nasal 50 MCG/SPRAY BOTTLE NS SCH (11:30)
[2018-12-23] MEDS ORDERED: Nitroglycerin 0.4 MG TAB.SUBL SL PRN (11:33)
--- NOTE | 2018-12-23 11:40 | Internal Med Progress Note ---
Hospitalist Progress Note - Encounter Date of Encounter: 12/23/18 Time of Encounter: 09:30 - Subjective Interval History: Feels well, continues to have significant amount of UOP. No chest pain, SOB, lightheadedness - Exam Vitals: Temp Pulse Resp BP Pulse Ox 97.9 F 90 16 98/51 99 12/23/18 11:00 12/23/18 11:00 12/23/18 11:00 12/23/18 11:00 12/23/18 11:00 Exam: General: Alert and oriented, not in acute distress. Morbidly obese Cardiovascular:Normal S1 & S2, No JVD. Pulse regular. Lungs: clear to auscultation, no wheezes/rales Abdomen:Soft, non-tender, no rigidity. Extremities:No deformity or swelling Neurological:Normal cognition and motor skills. Non-focal - Assessment and Plan (1) ALO (acute kidney injury) Current Visit: Yes Status: Acute Assessment and Plan: multifactorial, related to the usage of high-dose Lasix, IMANI inhibitor, hydrochlorothiazide, and metformin. Upon reconciliation of the medications, he does not appear to be on Jardiance. Retroperitoneal US unremarkable Cr improving, has significant UOP yesterday continue IVF monitor Cr and UOP, replete electrolytes as needed follow with nephro, appreciate input (2) Hyperglycemic hyperosmolar nonketotic coma Current Visit: Yes Status: Acute Assessment and Plan: presents to the ED with a glucose of 814, A1c 14.7 Improved with IVF, IV insulin -> now transitioned to SQ since Metformin will be discontinued upon discharge, will increase HS dose of levemir Increase to moderate dose sliding scale ADA diet (3) High anion gap metabolic acidosis Current Visit: Yes Status: Acute Assessment and Plan: combination of lactic acidosis and uremia, improving started on NaHCO3 per nephro (4) Atrial fibrillation Current Visit: No Status: Chronic Assessment and Plan: resume xarelto at 15mg QD, may be able to increase further with ongoing improvement of ALO (5) CAD (coronary artery disease) Current Visit: No Status: Chronic Assessment and Plan: Resume home meds (6) Morbid obesity with BMI of 45.0-49.9, adult Current Visit: No Status: Chronic Assessment and Plan: Lifestyle modification emphasized (7) DVT prophylaxis Current Visit: Yes Status: Acute Assessment and Plan: on Xarelto - Time Spent with Patient Total time spent is greater than 50% in coordination of care (as documented) at patient's floor/unit and/or counseling patient: Plan of Care Discussed with: patient Internal Medicine: Result - Labs CBC & Chem 7: 12/23/18 04:14 12/23/18 04:14 Labs: Short CBC 12/23/18 Range/Units 04:14 WBC 12.2 H (4.3-11.1) K/mcL Hgb 11.3 L (12.9-16.9) g/dL Hct 32.9 L (37.5-50.1) % Plt Count 224 (140-400) K/mcL Neutrophils # 9.3 H (1.6-8.9) K/mcL BMP 12/23/18 04:14 Sodium 133 L Potassium 4.6 Chloride 100 Carbon Dioxide 22 L BUN 106 H Creatinine 2.58 H Glucose 268 H Calcium 8.8 - Impressions Impressions Retroperitoneum Ultrasound 12/23/18 08:30 IMPRESSION: Unremarkable ultrasound of the kidneys and urinary bladder. D/ / Lv Mcdonald MD / Lv Mcdonald MD Interpreting Provider: Lv Mcdonald MD Consult Discharge Plan - Plan Referrals: NONE,PCP [Primary Care Provider] - Agatha Stone MD [Non-Partnered Physician] - 01/02/19 9:00 am (4) Atrial fibrillation Qualifiers: Atrial fibrillation type: paroxysmal Qualified Code(s): I48.0 - Paroxysmal atrial fibrillation (5) CAD (coronary artery disease) Qualifiers: Coronary Disease-Associated Artery/Lesion type: [place] artery [place] vs. t ransplanted heart: [place] heart Associated angina: without angina Qualified Code(s): I25.10 - Atherosclerotic heart disease of [place] coronary artery without angina pectoris
--- NOTE | 2018-12-23 12:53 | Nephrology Progress Note ---
Addendum entered and electronically signed by Rhys Caldwell DO 12/24/18 07:02: I have personally performed a face to face evaluation on this patient. I have reviewed and agree with the care plan. History and Exam by me shows: Making progress. Very uncontrolled DM. Would not resume metformin or Jardiance at discharge. See below. Original Note: Date of Encounter: 12/23/18 Time of Encounter: 12:51 - Assessment and Plan (1) ALO (acute kidney injury) Current Visit: Yes Status: Acute ALO is improving. GFR is 26, up from 15. Uop 4825 over 24 hour period and 1000 cc already for today. Avoid nephrotoxins and renal dose. Continue IVF. No need for [employer] CLERK today, could change depending on clincal picture. (2) Hyperlipidemia Current Visit: No Status: Chronic In general, I recommend Statin use in pt's with renal disease. Qualifiers: Hyperlipidemia type: unspecified Qualified Code(s): E78.5 - Hyperlipidemia, unspecified (3) Hypertension Current Visit: No Status: Chronic Hold IMANI d/t the ALO. Qualifiers: Hypertension type: essential hypertension Qualified Code(s): I10 - Essential (primary) hypertension (4) Acute hyponatremia Current Visit: No Status: Acute Likely pseudohyponatremia, at least in part, from the elevated hyperglycemia. NA 133. (5) Hyperglycemia Current Visit: Yes Status: Acute Likely contributing to the glucosuria, and pseudohyponatremia. Per primary. (6) Metabolic acidosis Current Visit: Yes Status: Acute Carbon dioxide correcting nicely at 22. Continue oral repletion. (7) Glucosuria Current Visit: Yes Status: Acute Likely from the hyperglycemia. Per primary. Subjective Principal diagnosis: fatigue/flu like symptoms Interval history: Pt seen and examined, family member at bedside. Denies nausea, vomiting, diarrhea. Denies CP or SOB. Objective - Vital Signs Vital signs: Vital Signs Temp Pulse Resp BP Pulse Ox 12/23/18 11:00 97.9 F 90 16 98/51 99 12/23/18 07:05 97.6 F 80 16 90/58 99 12/23/18 03:53 97.4 F L 96 18 81/70 99 12/22/18 23:56 98.0 F 85 19 84/46 100 12/22/18 19:42 98.2 F 79 18 99/54 99 12/22/18 15:15 97.6 F 79 18 98/52 99 Intake and Output 12/22/18 12/23/18 12/23/18 23:59 07:59 15:59 Intake Total 1040 / 1040 1200 / 1200 360 / 360 Output Total 825 / 825 1000 / 1000 Balance 215 / 215 200 / 200 360 / 360 Intake: Oral 1040 / 1040 1200 / 1200 360 / 360 Output: Urine 825 / 825 1000 / 1000 Other: Meal Dinner Breakfast Percent of Meal Consumed 100% 100% # Bowel Movements 0 Weight 161.2 kg Blood Glucose* 195 259 340 Patient Weight 12/23/18 23:59 Weight 161.2 kg - General Appearance General appearance: Present: well-developed, well-nourished, obese EENT: Present: ATNC, hearing intact, vision intact Neck: Present: supple Respiratory: Present: clear Cardiology: Present: no edema, normal S1 Gastrointestinal: Present: normoactive bowel sounds, no tenderness, no guarding Integumentary: Present: no rash, warm and dry Neurologic: Present: alert and oriented x3 Musculoskeletal: Present: no deformities, no erythema Psychiatric: Present: mood/affect appropriate, cooperative - Lab 12/23/18 04:14 12/23/18 04:14 Most recent lab results Calcium 8.8 mg/dL (8.6-10.3) 12/23/18 04:14 Phosphorus 6.5 mg/dL (2.7-4.5) H 12/23/18 04:14 Magnesium 2.0 mg/dL (1.6-2.6) 12/23/18 04:14 Consult Discharge Plan - Plan Referrals: NONE,PCP [Primary Care Provider] - Agatha Stone MD [Non-Partnered Physician] - 01/02/19 9:00 am
[2018-12-23] MEDS: 0.9 % Sodium Chloride 1,000 ML IVC SCH (14:57)
[2018-12-23] MEDS ORDERED: Loratadine 10 MG TABLET PO SCH (21:00)
[2018-12-23] MEDS ORDERED: Insulin LISPRO 300 UNITS/3 ML VIAL SQ SCH (21:00)
[2018-12-23] MEDS ORDERED: Insulin DETEMIR 100 UNIT/ML X5UNITS SQ SCH ×2 (21:00)
[2018-12-24 07:45] VITALS: BP 131/63
[2018-12-24] MEDS ORDERED: Aspirin 81 MG TAB.CHEW PO SCH (09:00)
[2018-12-24] MEDS ORDERED: Fluticasone Propionate Nasal 50 MCG/SPRAY BOTTLE NS SCH (09:00)
[2018-12-24] MEDS: Insulin LISPRO 300 UNITS/3 ML VIAL SQ SCH (09:18)
[2018-12-24 09:19] LABS: BUN/Creatinine Ratio 38 (6-26); Blood Urea Nitrogen 54 mg/dL (6-20); Calcium 9.5 mg/dL (8.6-10.3); Carbon Dioxide 24 mEq/L (23-29); Chloride 98 mEq/L (98-107); Glucose 337 mg/dL (70-105); Osmolality,Calculated 304 (280-300); Potassium 3.9 mEq/L (3.5-5.1); Sodium 133 mEq/L (136-145); eGFR For Non-African Americans 52 (> 60)
[2018-12-24] MEDS: 0.9 % Sodium Chloride 1,000 ML IVC SCH (09:27)
--- NOTE | 2018-12-24 09:55 | Nephrology Progress Note ---
Date of Encounter: 12/24/18 Time of Encounter: 09:53 - Assessment and Plan (1) ALO (acute kidney injury) Current Visit: Yes Status: Acute ALO is improving. GFR is 52 Uop 2800 over 24 hour period and 1400cc already for today. Avoid nephrotoxins and renal dose. May go home from renal standpoint. BMP in 7 days and follow up with Dr. Caldwell in 4-6 weeks. Continue to hold Lisinopril/HCTZ until seen by Dr. Caldwell. Hold home dosage of Lasix until seen by Dr. Caldwell. (2) Hyperlipidemia Current Visit: No Status: Chronic Per primary . Qualifiers: Hyperlipidemia type: unspecified Qualified Code(s): E78.5 - Hyperlipidemia, unspecified (3) Hypertension Current Visit: No Status: Chronic BP is stable at 131/63. Continue to hold Lisinopril/HCTZ until seen by Dr. Caldwell. Qualifiers: Hypertension type: essential hypertension Qualified Code(s): I10 - Essential (primary) hypertension (4) Acute hyponatremia Current Visit: No Status: Acute Likely pseudohyponatremia, at least in part, from the elevated hyperglycemia. NA 133. (5) Hyperglycemia Current Visit: Yes Status: Acute Likely contributing to the glucosuria, and pseudohyponatremia. Per primary. (6) Metabolic acidosis Current Visit: Yes Status: Acute Carbon dioxide correcting nicely at 24. Continue oral repletion. (7) Glucosuria Current Visit: Yes Status: Acute Likely from the hyperglycemia. Per primary. Subjective Principal diagnosis: fatigue/flu like symptoms Interval history: Pt seen and examined, family member at bedside. Denies nausea, vomiting, diarrhea. Denies CP or SOB. No acute events, is ready to go home. Objective - Vital Signs Vital signs: Vital Signs Temp Pulse Resp BP Pulse Ox 12/24/18 07:44 98.0 F 110 17 131/63 98 12/24/18 04:10 98.8 F 105 17 130/85 97 12/24/18 00:15 98.7 F 109 18 128/86 97 12/23/18 18:50 97.6 F 96 17 108/68 96 12/23/18 16:36 98.0 F 108 17 112/54 98 12/23/18 11:00 97.9 F 90 16 98/51 99 Intake and Output 12/23/18 12/24/18 12/24/18 23:59 07:59 15:59 Intake Total 400 / 400 4500 / 4500 1240 / 1240 Output Total 1800 / 1800 1400 / 1400 Balance -1400 / -1400 3100 / 3100 1240 / 1240 Intake: IV Fluids 4500 / 4500 1000 / 1000 0.9 % Sodium Chloride 1,000 ML 1000 / 1000 @ 50 mls/hr IVC .Q20H MARYAN Rx#: [id number] Oral 240 / 240 Free Water 400 / 400 Output: Urine 1800 / 1800 1400 / 1400 Other: Meal Breakfast Percent of Meal Consumed 100% # Voids 2 Blood Glucose* 389 310 - General Appearance General appearance: Present: well-developed, well-nourished, obese EENT: Present: ATNC, hearing intact, vision intact Neck: Present: supple Respiratory: Present: clear Cardiology: Present: no edema, normal S1, normal S2 Gastrointestinal: Present: normoactive bowel sounds, no tenderness, no guarding Integumentary: Present: no rash, warm and dry Neurologic: Present: alert and oriented x3 Musculoskeletal: Present: no deformities, no erythema Psychiatric: Present: mood/affect appropriate, cooperative - Lab 12/23/18 04:14 12/24/18 08:40 Most recent lab results Calcium 9.5 mg/dL (8.6-10.3) 12/24/18 08:40 Phosphorus 6.5 mg/dL (2.7-4.5) H 12/23/18 04:14 Magnesium 2.0 mg/dL (1.6-2.6) 12/23/18 04:14 Consult Discharge Plan - Plan Referrals: NONE,PCP [Primary Care Provider] - Agatha Stone MD [Non-Partnered Physician] - 01/02/19 9:00 am
--- NOTE | 2018-12-24 10:20 | Discharge Summary ---
- NOTES TO OUTPATIENT PROVIDER Notes to Outpatient Provider: Patient was admitted for profound ALO, metabolic acidosis secondary to lactic acidosis and uremia in the setting of Lasix, IMANI inhibitor, hydrochlorothiazide, and metformin use. Associated with hypotension requiring IVF. Improved with supportive measures with Cr downtrending from 5.1 - > 1.43. Will continue to hold off all the possible offending agents and follow up with nephrology in 4-6 weeks with BMP in 7 days. Will provide him with a script for coreg 12.5mg BID in case his BP starts to go up above 150/80 persistently. Orders not resulted at time of discharge: Pending orders 12/22/18 03:30 Culture,Blood [BC] AM 0400 12/22/18 04:00 Culture,Sputum with Gram Stain [RM] AM 040 Date of Encounter: 12/24/18 Time of Encounter: 07:30 - Discharge Diagnosis (1) ALO (acute kidney injury) Priority: Primary Status: Acute (2) Hyperglycemic hyperosmolar nonketotic coma Priority: Secondary Status: Acute (3) High anion gap metabolic acidosis Priority: Secondary Status: Acute (4) Atrial fibrillation Priority: Secondary Status: Chronic Qualifiers: Atrial fibrillation type: paroxysmal Qualified Code(s): I48.0 - Paroxysmal atrial fibrillation (5) CAD (coronary artery disease) Priority: Secondary Status: Chronic Qualifiers: Coronary Disease-Associated Artery/Lesion type: [place] artery [place] vs. transplanted heart: [place] heart Associated angina: without angina Qualified Code(s): I25.10 - Atherosclerotic heart disease of [place] coronary artery without angina pectoris (6) Morbid obesity with BMI of 45.0-49.9, adult Priority: Secondary Status: Chronic (7) DVT prophylaxis Priority: Secondary Status: Acute Hospital course: Mr. Mcdonnell is a 48 year old male was admitted for profound ALO, metabolic acidosis secondary to lactic acidosis and uremia in the setting of Lasix, IMANI inhibitor, hydrochlorothiazide, and metformin use. Associated with hypotension requiring IVF. Improved with supportive measures with Cr downtrending from 5.1 - > 1.43. Will continue to hold off all the possible offending agents and follow up with nephrology in 4-6 weeks with BMP in 7 days. Will provide him with a script for coreg 12.5mg BID in case his BP starts to go up above 150/80 persistently. Discharge discussed with: patient, nurse, social work, behavioral health consultant - Time Spent with Patient Total time spent providing and/or coordinating discharge services: 32 mins - Discharge Medications Prescriptions: Insulin Glargine,Hum.rec.anlog [Lantus Solostar] 40 unit SQ HS #1 insuln.pen Sodium Bicarbonate 650 mg PO TID 30 Days #90 tablet Home Medications: Rivaroxaban [Xarelto] 20 mg PO DAILY 03/21/16 [History] Fluticasone Propionate Nasal [Flonase] 50 mcg NS DAILY #0 03/22/16 [History] Glimepiride [Amaryl] 2 mg PO BID #0 03/22/16 [History] Aspirin 81 mg PO DAILY #90 tab.chew 03/23/16 [Rx] Nitroglycerin [Nitrostat] 0.4 mg SL AD PRN #30 tab 03/23/16 [Rx] Carvedilol 12.5 mg PO BID 30 Days tablet 06/07/16 [Rx] Omeprazole [PriLOSEC] 40 mg PO DAILY #30 cap 12/19/16 [Rx] Albuterol Sulfate [Albuterol Inhaler] 2 puff IH Q6HR #1 inh 12/12/18 [Rx] Atorvastatin [Lipitor] 40 mg PO HS 12/23/18 [History] Dulaglutide [Trulicity] 1.5 mg SQ QWEEK 12/23/18 [History] Levocetirizine Dihydrochloride [Allergy Relief] 5 mg PO HS 12/23/18 [History] Pioglitazone [Actos] 15 mg PO DAILY 12/23/18 [History] Insulin Glargine,Hum.rec.anlog [Lantus Solostar] 40 unit SQ HS #1 insuln.pen 12/24/18 [Rx] Sodium Bicarbonate 650 mg PO TID 30 Days #90 tablet 12/24/18 [Rx] Allergies/Adverse Reactions: Allergy/AdvReac Type Severity Reaction Status Date / Time No Known Allergies Allergy Verified 12/16/16 14:36 Date of admission: 12/22/18 09:37 Primary care physician: PCP NONE Consults: 12/22/18 06:54 Consult to Nephrology [CONS] Routine Consulting Provider: Kidney Tova/ALEJANDRA/GIA/JOSE MANUEL Reason for Consult: Acute kidney injury Call Completed: No - Constitutional Vitals: Temp Pulse Resp BP Pulse Ox 98.0 F 110 17 131/63 98 12/24/18 07:44 12/24/18 07:44 12/24/18 07:44 12/24/18 07:44 12/24/18 07:44 Exam: General: Alert and oriented, not in acute distress. Morbidly obese Cardiovascular:Normal S1 & S2, No JVD. Pulse regular. Lungs: clear to auscultation, no wheezes/rales Abdomen:Soft, non-tender, no rigidity. Extremities:No deformity or swelling Neurological:Normal cognition and motor skills. Non-focal - Patient Status Disposition: Home, Self-Care Condition: Good Functional capacity at discharge: independent ambulation Overall status at discharge: patient is progressing back to baseline - Discharge Instructions Instructions: Diabetes Mellitus Type 2 in Adults (DC), Atrial Fibrillation (DC) Follow Up With: NONE,PCP [Primary Care Provider] - Agatha Stone MD [Non-Partnered Physician] - 01/02/19 9:00 am Rhys Caldwell DO [Partnered Physician] - Forms: ED Satisfaction Letter Additional Instructions: Hold off on lasix, Lisinopril, HCTZ, and metformin Insulin increased to 40U at HS BMP in 1 week Follow up with Nephrology in 4-6 weeks Follow up with PCP - Diet and Activity Activity: resume usual activities as tolerated Diet: diabetic diet
[2018-12-24] MEDS ORDERED: *HR* Rivaroxaban 10 MG TABLET PO SCH (17:00)
--- NOTE | 2018-12-24 22:49 | Electrocardiograph Report ---
[place] [id number] Test Date: 2018-12-21 Pat Name: Eloy Mcdonnell Department: [id number] Room: [facility] Gender: M Weight Calculator: : 1970 Requested By: Joe Joseph Order Number: [id number] Reading MD: Jane Evans Measurements Intervals [place] Rate: 75 P: MD: QRS: -28 QRSD: 86 T: 56 QT: 409 QTc: 457 Interpretive Statements Atrial fibrillation Borderline left axis deviation Low voltage, precordial leads Poor R wave progression Electronically Signed On 12-24-2018 22:47:48 EST by Jane Evans
== END 2018-12-24 11:37 | disposition home or self-care (01) | DRG 638 ==
LOC: EMEROOARM 18:50 → 2NNU 18:50 → SUATTDRO 21:30 → 2NNU 21:56 → 2ANU 12-23 13:24
PROVIDERS: ADMIT Internal Medicine; ATTEND Internal Medicine